=== PATIENT | male | born 1970 | race Two or more races ===

== ENCOUNTER 2020-04-01 15:13 | Emergency (ER) | payer OTHER, SELFPAY ==
--- NOTE | ~2020-04-01 | XR_ITS ---
EXAMINATION: XR FOREARM, hand and wrist, LEFT CLINICAL INFORMATION: Pain COMPARISON: None TECHNIQUE: AP and lateral views of the left forearm were obtained. 4 views of the left hand and wrist FINDINGS: Left hand and wrist: Bone alignment is normal. No acute fracture or dislocation is seen. There is a well-corticated density ossification adjacent to the dorsal PIP joint of the fourth finger questionable for old trauma. There is evidence of mild arthritis with small osteophytes joint space narrowing at the DIP joints, greatest at the second digit. Carpal bones are unremarkable. Soft tissues are unremarkable. Left forearm: Bone alignment is normal. No fracture or dislocation is seen. Joint spaces are normal. There may be a small radiopaque density in the soft tissues of the distal forearm adjacent to the palmar distal ulna measuring 2 mm. XR/XR hand wrist LT IMPRESSION: Left hand and wrist: No acute fracture or dislocation. Mild degenerative changes. Left forearm: Question small 1 to 2 mm radiopaque soft tissue foreign body adjacent to the distal ulna.
--- NOTE | ~2020-04-01 | XR_ITS ---
EXAMINATION: XR FOREARM, hand and wrist, LEFT CLINICAL INFORMATION: Pain COMPARISON: None TECHNIQUE: AP and lateral views of the left forearm were obtained. 4 views of the left hand and wrist FINDINGS: Left hand and wrist: Bone alignment is normal. No acute fracture or dislocation is seen. There is a well-corticated density ossification adjacent to the dorsal PIP joint of the fourth finger questionable for old trauma. There is evidence of mild arthritis with small osteophytes joint space narrowing at the DIP joints, greatest at the second digit. Carpal bones are unremarkable. Soft tissues are unremarkable. Left forearm: Bone alignment is normal. No fracture or dislocation is seen. Joint spaces are normal. There may be a small radiopaque density in the soft tissues of the distal forearm adjacent to the palmar distal ulna measuring 2 mm. XR/XR forearm LT 2V IMPRESSION: Left hand and wrist: No acute fracture or dislocation. Mild degenerative changes. Left forearm: Question small 1 to 2 mm radiopaque soft tissue foreign body adjacent to the distal ulna.
[2020-04-01 15:26] VITALS: BP 108/59; PULSE 74; RESP 16; TEMP 37; O2SAT 97; BMI 22.3
[2020-04-01] MEDS: HYDROcodone Bit/Acetam 5/325 TABLET 1 TAB PO (16:24)
--- NOTE | 2020-04-01 16:30 | ED_ITS ---
HPI - Extremity Injury (Upper) General Chief Complaint: Extremity Injury, Lower Stated Complaint: Arm pain/Work Injury Time Seen by Provider: 04/01/20 15:52 Source: patient Mode of arrival: ambulatory Limitations: no limitations History of Present Illness HPI narrative: 49-year-old male with no significant past medical history presenting to the ED with complaints of left forearm/wrist pain while lifting a 95 lb bag of cement at work a few days ago worse today with the pain. Reports he feels like ?I have water in it?. complaint: injury to: left, forearm and wrist Other injuries: none Place: work Severity: moderate Relieving factors: none Exacerbating factors: other (Movement) Context: other (Injury with cement bags) Associated symptoms: denies other symptoms Related Data Previous Rx's Medication Instructions Recorded cephalexin 500 mg PO BID 10 Days #20 cap 04/01/20 doxycycline monohydrate 100 mg PO BID 10 Days #20 cap 04/01/20 naproxen 500 mg PO BID PRN #10 tab 04/01/20 oxycodone-acetaminophen [Percocet] 1 tab PO Q6H PRN #10 tab 04/01/20 Allergies Allergy/AdvReac Type Severity Reaction Status Date / Time No Known Allergies Allergy Unverified 11/07/19 15:03 [No Known Allergies*] Review of Systems Review of Systems: Constitutional : No Fever, No Chills Eyes: No Eye Pain, No Swelling, No Redness, No Foreign Body, No Discharge, No Vision Changes Cardiovascular : No Chest Pain, No SOB, No Dyspnea on Exertion, No Orthopnea, No Edema, No Palpitations Musculoskeletal : + joint pain, No Myalgias, No Joint Swelling Skin : No Skin Lesions, No rash Neuro : No Weakness, No Numbness, No Paresthesias Heme/Lymph: No Lymphadenopathy Yes all other systems are reviewed and are negative [facility] Past Medical History Attestation statement: The following information was validated with the patient. Medical History No known health problems Social History Social History Advance Directives: No Advance Directives Information Provided: Yes Physical Exam Vital Signs: Vital Signs: Last Vital Signs Temp 98.6 F 04/01/20 15:26 Pulse 74 04/01/20 15:26 Resp 16 04/01/20 15:26 BP 108/59 L 04/01/20 15:26 Pulse Ox 97 04/01/20 15:26 Body Mass Index 22.3 vital signs have been reviewed as normal and appeared to be correct. Blood pressure normal. Heart rate normal. Respiration rate normal. Temperature normal. Oxygen saturation normal. Appearance: Alert. Oriented X3. No acute distress. Head: Normal external exam. Normocephalic. Atraumatic. Eyes: PERRLA. EOMI. Conjunctiva and sclera normal. Eyelids normal. ENT: Pharynx normal. Uvula midline. Moist mucous membranes. Neck: Normal inspection. Neck supple. FROM. No adenopathy. Thyroid Normal. No meningeal signs. No neck mass noted. CVS: Normal heart rate and rhythm. Heart sound normal. No murmurs noted. Pulses normal throughout. Respiratory: No respiratory distress. Painless inspiration. Breath sounds normal. No wheezes/rales/rhonchi noted. Chest nontender. No accessory muscle usage noted or decreased air movement noted. Back: Full range of motion noted. Skin: Skin warm and dry. Normal skin color. Normal skin turgor. No rashes/lesions/lacerations noted. Extremities: TTP of left forearm at the proximal aspect c mild erythema. No streaking/induration/fluctuance/abrasions/lacerations noted. Patient with full range of motion of elbow/wrist and hand. Patient mild tenderness to palpation to left wrist. Otherwise all other Extremities exhibit normal range of motion and nontender. Neuro: Oriented X 3. No motor deficit. No sensory deficit. Reflexes normal. 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 Reports that the bag was intact and did not break open and he denies any other injuries complaints or concerns. X-ray obtained of left hand and wrist and revealed chronic changes no acute processes noted. X-ray of left forearm revealed a foreign body at the distal aspect of the forearm were patient does not have any pain and does not have any signs of infection or open wounds/abrasions or foreign bodies therefore most likely this foreign body is old/chronic. Otherwise no other acute processes noted. Will DC home with an tibiotics for possible cellulitic infection and symptomatic treatment along with referral to Orthopedics and instructions return if any new or worsening symptoms. Patient understands agrees the plan. MDM - Extremity Injury (Upper) Medical Records Attestation: I reviewed the patient's medical records. Imaging Data Left wrist/hand/forearm x-ray: Attestation: I personally reviewed and interpreted this imaging study as follows: Radiologist's impression: INDINGS: Left hand and wrist: Bone alignment is normal. No acute fracture or dislocation is seen. There is a well-corticated density ossification adjacent to the dorsal PIP joint of the fourth finger questionable for old trauma. There is evidence of mild arthritis with small osteophytes joint space narrowing at the DIP joints, greatest at the second digit. Carpal bones are unremarkable. Soft tissues are unremarkable. Left forearm: Bone alignment is normal. No fracture or dislocation is seen. Joint spaces are normal. There may be a small radiopaque density in the soft tissues of the distal forearm adjacent to the palmar distal ulna measuring 2 mm. XR/XR hand wrist LT IMPRESSION: Left hand and wrist: No acute fracture or dislocation. Mild degenerative changes. Left forearm: Question small 1 to 2 mm radiopaque soft tissue foreign body adjacent to the distal ulna. Discharge Plan Discharge Clinical Impression: Foreign body forearm, Sprain of forearm, left, Cellulitis of forearm, left Patient Disposition: Home, Self-Care Instructions: Soft Tissue Foreign Body (ED), Sprain (ED) Prescriptions: New oxycodone-acetaminophen [Percocet] 5-325 mg tablet 1 tab PO Q6H PRN (Reason: pain) Qty: 10 RF: 0 doxycycline monohydrate 100 mg capsule 100 mg PO BID 10 Days Qty: 20 RF: 0 cephalexin 500 mg capsule 500 mg PO BID 10 Days Qty: 20 RF: 0 naproxen 500 mg tablet 500 mg PO BID PRN (Reason: pain) Qty: 10 RF: 0 Referrals: Minda Cui MD [Physician] - 2 days (Call tomorrow to make an appointment within the next week) Stand Alone Forms: Work/School Release Print Language: Anguillan
== END 2020-04-01 17:05 | disposition home or self-care (01) ==
PROVIDERS: Emergency Provider Emergency Medicine Emergency Medical Services
DX: M79.5 Residual foreign body in soft tissue (principal); S63.8X2A Sprain of other part of left wrist and hand, initial encounter; X50.0XXA Overexertion from strenuous movement or load, initial encounter; L03.114 Cellulitis of left upper limb; Y93.89 Activity, other specified; Y92.69 Other specified industrial and construction area as the place of occurrence of the external cause; Y99.0 Civilian activity done for income or pay
CPT/HCPCS: 73090; 73110; 73130; 99283

== ENCOUNTER 2025-02-10 10:10 | Inpatient (IN) | payer MEDICAID, SELFPAY ==
--- NOTE | ~2025-02-10 | XR_ITS ---
EXAMINATION: XR CHEST 2 VIEWS HISTORY: SOB. cough. Pneumonia? COMPARISON: There are no prior studies available for comparison. FINDINGS: PA and lateral views of the chest are submitted. The lungs are hyperinflated, consistent with COPD. There are multifocal airspace opacities throughout the lungs, likely representing pneumonia. There is no pleural effusion, pneumothorax, or pulmonary vascular congestion. The heart is normal in size. There is degenerative disc disease of the spine. XR/XR chest 2V IMPRESSION: COPD. Multifocal airspace opacities throughout the lungs, likely representing pneumonia. Follow-up is recommended. If there are outside prior examinations, comparison is recommended. Electronically signed by: Silvio Fonseca MD 02/10/2025 11:07 AM [facility]
--- NOTE | ~2025-02-10 | CT_ITS ---
EXAMINATION: CT ABDOMEN PELVIS WITHOUT IV CONTRAST HISTORY: abd pain, air on ct chest COMPARISON: Correlation is made with the upper abdominal images from a chest CTA performed earlier in the day. TECHNIQUE: CT scan of the abdomen and pelvis was performed without contrast using standard departmental protocol. Coronal and sagittal reformatted images were generated and reviewed. Oral contrast material was not administered at the request of the referring physician. This CT exam was performed with one or more of the following dose reduction techniques: automated exposure control, adjustment of the mA and/or kV according to patient size, use of iterative reconstruction technique. DLP: 261 mGy-cm FINDINGS: The examination is markedly limited due to a paucity of abdominal fat. LOWER CHEST: There are numerous tree-in-bud opacities at the lung bases consistent with small airways disease. Multifocal airspace opacities are seen, consistent with pneumonia.. There is no pleural effusion. CARDIOVASCULATURE: The heart is normal in size. There is no pericardial effusion. LIVER: The liver is normal in size and contour. GALLBLADDER / BILE DUCTS: The gallbladder is unremarkable. There is no intra or extrahepatic biliary ductal dilatation. SPLEEN: The spleen is normal in size. PANCREAS: The pancreas is poorly visualized. ADRENAL GLANDS: The adrenal glands are poorly visualized. KIDNEYS/RETROPERITONEUM: Excreted contrast is noted in the bilateral renal collecting systems from prior chest CTA. LYMPH NODES: Evaluation of the retroperitoneum is markedly limited due to lack of intra-abdominal fat. VASCULATURE: The abdominal vessels are not well visualized. MESENTERY/PERITONEUM: There is no free intraperitoneal gas. STOMACH: The stomach is poorly visualized. SMALL BOWEL: Small bowel loops are poorly visualized. COLON: There is stool in the colon. APPENDIX: The appendix is not visualized. URINARY BLADDER/PELVIC ORGANS: There is excreted contrast in the urinary bladder. BONES / SOFT TISSUES: The bones are intact. CT/CT abdomen pelvis wo IV con IMPRESSION: Markedly limited examination due to lack of intravenous and oral contrast material and a paucity of abdominal fat. There is no free intraperitoneal gas. Electronically signed by: Silvio Fonseca MD 02/10/2025 03:39 PM EST
--- NOTE | ~2025-02-10 | XR_ITS ---
EXAMINATION: XR CHEST 1 VIEW HISTORY: pneumonia COMPARISON: Comparison is made with the prior examination dated 02/10/2025. FINDINGS: A single AP portable view of the chest performed at 9:17 AM is submitted. The lungs remain hyperinflated, consistent with COPD. Again seen are multifocal airspace opacities throughout the lungs, compatible with pneumonia. There is no pleural effusion, pneumothorax, or pulmonary vascular congestion. The heart is normal in size. There is degenerative disc disease of the spine. XR/XR chest 1V IMPRESSION: COPD. Multifocal airspace opacities throughout the lungs without change, consistent with pneumonia. Electronically signed by: Silvio Fonseca MD 02/12/2025 09:29 AM [facility]
--- NOTE | ~2025-02-10 | CT_ITS ---
EXAMINATION: CT ANGIOGRAM CHEST CLINICAL INFORMATION: Dyspnea, 30 lb weight loss, abnormal chest XR COMPARISON: Chest x-ray performed 45 minutes earlier TECHNIQUE: Multiple axial images were obtained through the chest after the administration of 65 mL of Omnipaque 350 intravenous contrast. Extensive vascular post-processing including two-dimensional and three-dimensional reformatted images were created and reviewed on an independent workstation. This CT examination was performed using dose optimization techniques as appropriate, variously including the following: *Automated exposure control *Adjustment of mA and/or kV according to patient size (this includes techniques or standardized protocols for targeted exams where dose is matched to indication/reason for exam; i.e. extremities or head) *Use of iterative reconstruction technique FINDINGS: QUALITY OF STUDY/CONTRAST BOLUS: Adequate but degraded by beam hardening artifact related to dense contrast in the superior vena cava and right atrium. PULMONARY ARTERIES: No filling defects are identified in the pulmonary arteries. THORACIC AORTA: Mild multifocal atherosclerotic calcification are present. There is no aneurysm. There is no dissection. LUNGS AND PLEURA: There are patchy and confluent diffuse areas of groundglass and airspace opacities throughout the lungs There are innumerable small nodular densities, most pronounced in the lower lungs. There is no gross pulmonary vascular enlargement. There is paraseptal emphysema in the lung apexes. There is no pleural effusion. MEDIASTINUM: There is increased density in the mediastinal fat. There is a 9 mm short axis AP window lymph node. There is an 11 mm short axis subcarinal lymph node. There are subcentimeter bilateral hilar lymph nodes. CORONARY ARTERY CALCIFICATION: No definite calcifications, but moderately obscured due to motion artifacts. CHEST WALL/AXILLA: No axillary or internal mammary lymphadenopathy. UPPER ABDOMEN: There is essentially no intraperitoneal fat limiting evaluation. There is trace gas along the deep margin of the left lobe of the liver. The exact location is uncertain given the limited evaluation of the upper abdomen. BONES: Unremarkable CT/CT angio chest PE protocol IMPRESSION: No evidence of pulmonary embolus. Multifocal ground glass and airspace opacity is suspicious for pneumonia. There are innumerable small nodular densities in the lung bases that could also be related, though underlying malignancy is not ruled out, follow-up CT should be performed after complete resolution of patient's symptoms. There is trace gas visible along the deep surface of the left hepatic lobe. The precise location and origin of the gas is uncertain given the limited evaluation of the abdomen. The patient also has scant intraperitoneal fat which increases the difficulty of characterization of the abdomen. If there is evidence of abdominal or pelvic pathology, consider CT abdomen and pelvis with IV and oral contrast. Fleischner guidelines were followed. Electronically signed by: John Velasquez MD 02/10/2025 12:22 PM [facility]
[2025-02-10 10:26] VITALS: BP 102/67; PULSE 73; RESP 20; TEMP 36.7; O2SAT 91; BMI 14.2
--- NOTE | 2025-02-10 10:32 | ED_ITS ---
HPI - General Adult General Chief complaint: Upper Respiratory Symptoms Stated complaint: Winded Easily, Pain In Lungs Time Seen by Provider: 02/10/25 10:43 Source: patient Mode of arrival: ambulatory Limitations: no limitations History of Present Illness ED Provider: Dr. Carl Tse HPI narrative: 54-year-old male history heroin use disorder in remission on methadone x4 years who presents emergency department for evaluation of feeling ill for 1 week. The patient states that he has had an occasional cough which is productive of yellow sputum with no blood in his sputum, loss of appetite with weight loss, weakness, dyspnea on exertion and bilateral chest pain. Patient states that he was feeling weaker therefore he came to the emergency department for evaluation. He had a subjective fever but denied chills. He denied rhinorrhea, sore throat, nausea, vomiting, diarrhea, myalgias arthralgias. He denies using injection drugs, he states that when he was using heroin he was using a intranasally but he has not used in 4 years. Related Data Home Medications ?Medication ?Instructions ?Recorded ?Confirmed methadone 10 mg/mL oral concentrate 105 mg PO DAILY 02/11/25 Allergies Allergy/AdvReac Type Severity Reaction Status Date / Time No Known Allergies (No Known Allergy Unverified 02/10/25 10:27 Allergies*) Review of Systems 2 Review of Systems: Yes all other systems are reviewed and are negative [facility] Past Medical History [facility] Narrative: Social history: He smokes 2 cigarettes per day times 15 years. He denies alcohol use. He denies drug use. Medical History Polysubstance abuse Cachexia Opiate dependence Social History Social History Household Members: Family Housing: House Do you presently have visiting nurse or other home services: No Patient Tobacco Use Status: Never used Tobacco Tobacco use type: Cigarette Cigarettes Per Day: 2 Second Hand Smoke Exposure: No service: No Physical Exam ED Vital Signs: Vital Signs - 24 hr 02/10/25 10:26 02/10/25 10:47 Temperature 98.0 F 98.4 F Pulse Rate 73 83 Respiratory Rate 20 17 Blood Pressure 102/67 113/74 Pulse Oximetry 91 L 100 Oxygen Delivery Method Room Air Room Air BMI result Body Mass Index 14.2 Vital signs revealed an O2 saturation of 91% on room air when he 1st got to the emergency department, repeat O2 saturation was 100% on room air. Vital signs otherwise unremarkable Exam: General: Awake, alert in no distress, patient's weight is 44.8 kg, low BMI 14.2 kilograms/meters squared Head: Normocephalic, atraumatic EENT: PERRL, sclera and conjunctiva are normal, mouth with no erythema or exudates Neck: Supple, no adenopathy Lung: breath sounds symmetric, no wheezing, no rales and no rhonchi Chest: symmetric movement, nontender Heart: regular rate and rhythm, normal S1, S2 no murmurs or rubs Abdomen: soft, non-tender, nondistended, normal bowel sounds Back: no vertebral tenderness, no CVAT Extremities: no deformities, moves all extremities symmetrically, no edema Neuro: Awake, alert, oriented, normal speech, cranial nerves 2-12 intact, moves all extremities symmetrically Psych: Pleasant, cooperative Course Course Course Narrative: RME: 54 yold male on methaonde presents to the ED For URI symptoms. Patient right lung pain with SOB with coughing and wieght loss. patient appears cachectic, but denies any medical history. labs and xray ordered. 02 sat 91, not labored. will alert charge nurse Medications Administered Generic Name Dose Route Start Last Admin Trade Name Freq PRN Reason Stop Dose Admin Azithromycin 500 mg 02/11/25 15:00 02/12/25 15:35 Azithromycin 500 Mg Tablet PO 500 mg Q24H HECTOR Administration Enoxaparin Sodium 40 mg 02/11/25 09:00 02/12/25 08:34 Enoxaparin Sodium 40 Mg/0.4 Ml Syringe SUBCUT Not Given Q24H HECTOR Ceftriaxone Sodium 1 gm/ 50 mls @ 100 mls/hr 02/11/25 12:00 02/12/25 12:52 Sodium Chloride IV Infused Q24H HECTOR Infusion Methadone HCl 105 mg 02/11/25 11:00 02/12/25 09:07 Methadone Hcl 20 Mg/2 Ml Oral.Conc PO 105 mg DAILY HECTOR Administration Sodium Chloride 3 ml 02/10/25 16:00 02/12/25 15:38 0.9 % Sodium Chloride Flush 3 Ml Syringe IVFLUSH Not Given QSHIFT HECTOR Discontinued Medications Generic Name Dose Route Start Last Admin Trade Name Amanda PRN Reason Stop Dose Admin Ceftriaxone Sodium 2 gm/ 50 mls @ 100 mls/hr 02/10/25 11:15 02/10/25 12:46 Sodium Chloride IV 02/10/25 11:44 Infused ONCE ONE Infusion Azithromycin 500 mg/ Sodium 250 mls @ 125 mls/hr 02/10/25 11:15 02/10/25 14:38 Chloride IV 02/10/25 13:14 Infused ONCE ONE Infusion Clindamycin Phosphate 600 mg in 50 mls @ 100 mls/hr 02/10/25 13:54 02/10/25 15:35 Cleocin IV 02/10/25 14:23 Infused ONCE ONE Infusion Iohexol 100 ml 02/10/25 11:39 02/10/25 11:39 Iohexol 350 Mg/Ml 100 Ml Infus..Btl IV 02/10/25 11:40 65 ml ONCE ONE Administration Ketorolac Tromethamine 30 mg 02/10/25 10:56 02/10/25 11:13 Ketorolac Tromethamine 30 Mg/Ml Vial IM 02/10/25 10:57 30 mg ONCE ONE Administration Medical Decision Making Medical Decision Making MDM Narrative: 54-year-old male history heroin use disorder in remission on methadone x4 years who presents emergency department for evaluation of feeling ill for 1 week. Patient is complaining of loss of appetite, significant weight also over 1 week, occasional cough productive of yellow sputum, loss of appetite, weakness, bilateral ribs/chest pain, dyspnea on exertion. Vital signs were normal. Physical examination was unremarkable except for very low BMI of 14.2 kilograms/meters squared. Differential diagnosis: ?Includes but is not limited to viral syndrome, COVID- 19, RSV, influenza, pneumonia, malignancy, bronchitis, anemia, electrolyte abnormalities Course: 11:24 My interpretation patient's laboratory evaluation is as follows: Normocytic anemia with an H&H of 11.5 and 33.6 with a an MCV of 89.6. Low sodium 134. Elevated glucose 126. LFTs were normal. COVID-19, influenza, RSV and rapid strep were negative. Chest x-ray is consistent with COPD like changes, he also has bilateral infiltrates. Given his weight loss and increased dyspnea on exertion I am concerned that the patient may have a malignancy in his opposed to an infectious process and I did discuss this with the patient. I did order a CT pulmonary angiogram PE protocol to evaluate for PE, malignancy versus infectious process. I ordered blood cultures x2, lactic acid, IV insert. I also treat the patient for possible community-acquired pneumonia with ceftriaxone 1 g IV and azithromycin 500 mg IV. 13:[address] normal. CT pulmonary angiogram PE protocol revealed no pulmonary embolism, patient does have multifocal ground-glass opacities suspicious for pneumonia as well as multiple nodules but no large tumor noted by the radiologist. The radiologist also noted gas visible longer deep structures of the left hepatic lobe however I do not know the clinical significance of this finding, but I did order clindamycin 600 mg IV to increase the patient's anaerobic coverage. 14:32 I did discuss admission over tiger text with the covering hospitalist, nurse practitioner Socorro Keenan and the patient will be admitted for further treatment. Differential Diagnosis Differential Diagnoses: The differential diagnosis associated with the presentation includes See above Admission/Observation Consideration of admission/observation: Escalation of care including admission/observation considered (Yes) Consult Healthcare Provider Management of the patient was discussed with: Hospitalist Lab Data [facility] Lab Attestation statement: I reviewed the patient's lab results. 02/11/25 05:27 02/11/25 05:27 Labs: Lab Results 02/10/25 02/10/25 02/10/25 Range/Units 10:42 11:48 11:49 WBC 9.1 (4.8-10.8) X10*3/uL RBC 3.75 L (4.60-5.80) X10*6/uL Hgb 11.5 L (14.0-18.0) g/dl Hct 33.6 L (42.0-52.0) % MCV 89.6 (80.0-98.0) fL MCH 30.7 (27.0-33.0) pg MCHC 34.2 (31.0-36.0) g/dl RDW 14.6 (11.0-16.0) % Plt Count 227 (160-400) X10*3/uL MPV 10.0 (9.4-12.4) fL Immature Gran % (Auto) Cancelled Neut % (Auto) Cancelled Lymph % (Auto) Cancelled [place] % (Auto) Cancelled Eos % (Auto) Cancelled Baso % (Auto) Cancelled Lymph # (Auto) Cancelled [place] # (Auto) Cancelled Eos # (Auto) Cancelled Baso # (Auto) Cancelled Abs Immat Gran (auto) Cancelled Absolute Neuts (auto) Cancelled Absolute Nucleated RBC 0.000 (0.0-0.012) X10*3/uL Nucleated RBC % (auto) 0.0 (0.0-0.2) /100WBC Neutrophils % (Manual) 80 H (45-73) % Band Neutrophils % 3 (3-5) % Lymphocytes % (Manual) 15 L (20-40) % Monocytes % (Manual) 2 (2-11) % Abs Neuts (Manual) 7.6 (2.0-8.3) X10*3/uL Lymphocytes # (Manual) 1.4 (1.2-4.9) X10*3/uL Monocytes # (Manual) 0.2 (0.1-1.2) X10*3/uL Toxic Granulation PRESENT Dohle Bodies PRESENT Platelet Estimate NORMAL (NORMAL) Large Platelets PRESENT Plt Morphology Comment NOTED RBC Morphology NOTED [place] Cells 1+ (0-2) /OIF Acanthocytes (Spur) 2+ (3-5) /OIF APTT 28.8 (26.7-34.1) SEC Sodium 134 L (135-145) mmol/L Potassium 4.3 (3.3-5.1) mmol/L Chloride 99 (96-108) mmol/L Carbon Dioxide 25 (22-29) mmol/L Anion Gap 14 (12-20) BUN 15 (9-16) mg/dL Creatinine 0.56 (0.5-1.4) mg/dL Estim Creat Clear Calc 96.6 Estimated GFR > 60 Random Glucose 128 H (60-115) mg/dL Lactic Acid 0.8 (0.5-2.0) mmol/L Calcium 8.8 (8.4-10.2) mg/dL Magnesium 2.1 (1.6-2.6) mg/dL Total Bilirubin 0.6 (0.0-1.0) mg/dL AST 33 (5-37) U/L ALT 20 (0-40) U/L Alkaline Phosphatase 77 (39-117) U/L Total Creatine Kinase 59 (38-174) U/L Total Protein 6.8 (6.5-8.0) g/dL Albumin 3.3 L (3.5-5.0) g/dL Influenza Type A (PCR) NEGATIVE (Negative) Influenza Type B (PCR) NEGATIVE (Negative) RSV RNA Qual (PCR) NEGATIVE (Negative) SARS-CoV-2 RNA (RT-PCR) NEGATIVE (Negative) S. pyogenes GrpA CED Negative (Negative) Independent Interpretation I performed an independent interpretation of an: Plain X-Ray Interpretation: My independent interpretation patient's one-view chest x-ray is as follows: COPD changes, multiple bilateral interstitial infiltrates Radiology Impression Radiologist Impression: XR chest 2V IMPRESSION: COPD. Multifocal airspace opacities throughout the lungs, likely representing pneumonia. Follow-up is recommended. If there are outside prior examinations, comparison is recommended. Electronically signed by: Silvio Fonseca MD 02/10/2025 11:[address] angio chest PE protocol IMPRESSION: No evidence of pulmonary embolus. Multifocal ground glass and airspace opacity is suspicious for pneumonia. There are innumerable small nodular densities in the lung bases that could also be related, though underlying malignancy is not ruled out, follow-up CT should be performed after complete resolution of patient's symptoms. There is trace gas visible along the deep surface of the left hepatic lobe. The precise location and origin of the gas is uncertain given the limited evaluation of the abdomen. The patient also has scant intraperitoneal fat which increases the difficulty of characterization of the abdomen. If there is evidence of abdominal or pelvic pathology, consider CT abdomen and pelvis with IV and oral contrast. Fleischner guidelines were followed. Electronically signed by: John Velasquez MD 02/10/2025 12:22 PM Critical Care Time Critical Care Time Critical Care Time: Yes Total Critical Care Time: 45 Attestation: Critical Care: The patient was critically ill with a high probability of imminent or life threatening deterioration. I spent greater than 30 minutes of discontinuous time evaluating the patient,delivering critical care at the bedside, discussing and evaluating pertinent data with consultants. Critical care time does not include time spent performing separately billable procedures or teaching. Total time spent performing critical care was 45 minutes. Discharge Plan Discharge Clinical Impression: Abnormal weight loss Pneumonia Qualifiers: Pneumonia type: due to unspecified organism Laterality: unspecified laterality Lung location: unspecified part of lung Qualified Code(s): J18.9 - Pneumonia, unspecified organism Patient Disposition: Admitted As Inpatient Interventions: Admission Worksheet (ED) Last Done: 02/10/25 16:33 Discharge Date/Time: 02/10/25 17:33
[2025-02-10 10:47] VITALS: BP 113/74; PULSE 83; RESP 17; TEMP 36.9; O2SAT 100
[2025-02-10 10:59] LABS: Hematocrit 33.6 % (42.0-52.0); Hemoglobin 11.5 g/dl (14.0-18.0); Mean Corpuscular HGB Conc 34.2 g/dl (31.0-36.0); Mean Corpuscular Hemoglobin 30.7 pg (27.0-33.0); Mean Corpuscular Volume 89.6 fL (80.0-98.0); NRBC Abs Auto 0.000 X10*3/uL (0.0-0.012); NRBC Pct Auto 0.0 /100WBC (0.0-0.2); Platelet Count 227 X10*3/uL (160-400); Red Blood Count 3.75 X10*6/uL (4.60-5.80); White Blood Count 9.1 X10*3/uL (4.8-10.8)
[2025-02-10 11:00] LABS: IDNOW Serial# 08D9AD1C; Strep A Nucleic Acid Negative (Negative)
[2025-02-10 11:05] LABS: Alanine Aminotransferase 20 U/L (0-40); Albumin Level 3.3 g/dL (3.5-5.0); Alkaline Phosphatase 77 U/L (39-117); Anion Gap 14 (12-20); Aspartate Amino Transferase 33 U/L (5-37); Blood Urea Nitrogen 15 mg/dL (9-16); Calcium 8.8 mg/dL (8.4-10.2); Carbon Dioxide 25 mmol/L (22-29); Chloride 99 mmol/L (96-108); Creatinine Clr Calc Pharmacy 96.6; Estimated Glomerular Filt Rate > 60; Magnesium 2.1 mg/dL (1.6-2.6); Potassium 4.3 mmol/L (3.3-5.1); Sodium 134 mmol/L (135-145); Total Protein 6.8 g/dL (6.5-8.0)
[2025-02-10 11:37] LABS: Resp Syncy Virus RNA Qual PCR NEGATIVE (Negative); SARS COV2 PCR INHOUSE NEGATIVE (Negative)
[2025-02-10] MEDS: iohexoL 350 MG/ML 100 ML INFUS..BTL IV (11:39)
[2025-02-10 11:42] LABS: Band Neutrophils Percent 3 % (3-5); Lymphocytes Absolute Manual 1.4 X10*3/uL (1.2-4.9); Lymphocytes Percent Manual 15 % (20-40); Monocytes Absolute Manual 0.2 X10*3/uL (0.1-1.2); Monocytes Percent Manual 2 % (2-11); Neutrophils Absolute Manual 7.6 X10*3/uL (2.0-8.3); Neutrophils Percent Manual 80 % (45-73)
[2025-02-10 11:45] LABS: Acanthocytes 2+ (3-5) /OIF; Burr Cells 1+ (0-2) /OIF; Dohle Bodies PRESENT; Large Platelet PRESENT; RBC Morphology NOTED
[2025-02-10 11:46] LABS: Toxic Granulation PRESENT
[2025-02-10 12:04] LABS: Partial Thromboplastin Time 28.8 SEC (26.7-34.1)
--- OUTSIDE RECORDS SUMMARY | 2025-02-10 13:52 | XMS_ITS | Clinical Summary ---
Author Organization 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 Name Role Phone Unavailable Primary Care Provider Unavailabl e Medications melatonin tabletIndicatio ns:Primary insomnia TAKE 1 TABLET BY MOUTH AT BEDTIME NEEDED FOR SLEEP 90 tablet 09/08/2023 Active Social History Tobacco Use Types Packs/Day Years Used Date Smoking Tobacco: Never Assessed Sex and Gender Information Value Date Recorded Sex Assigned at Male 12/20/2021 10:15 AM EDT Legal Sex Male 10:15 AM EDT Gender Identity Male 12/20/2021 10:15 AM EDT Sexual Orientation Don't know 12/20/2021 10 :15 AM EDT Last Filed Vital Signs Vital Sign Reading Time Taken Comments Blood Pressure 118/60 06/17/2020 12:04 AM EDT Pulse 68 06/17/2020 12:04 AM EDT Temperature - - Respiratory Rate - - Oxygen Saturation - - Inhaled Oxygen Concentration - - Weight 56.5 kg (124 lb 9.6 oz) 06/17/2020 12:04 AM EDT Height 178 cm (5' 10.08 ) 06/17/2020 12:04 AM ED T Body Mass Index 17.84 06/17/2020 12:04 AM EDT Plan of Treatment Health Maintenance Due Date Last Done Comments CT Colonography 1971 Colonoscopy 1971 Colorectal Cancer Screening 1971 Depression Screening 1971 FIT DNA/Cologuard 1971 FIT 1971 FOBT 1971 HIV Screening 1971 Lipid Panel 1971 Sigmoidoscopy 1971 Disability Screening 1971 Alcohol/Substance Use Screening 1983 Tobacco Screening 1983 Hepatitis C Screening 04/25/1989 Hepatitis B Vaccines (1 of 3 - 19+ 3-dose series) 04/25/1990 Pneumococcal Vaccine: 50+ Years (1 of 1 - PCV) 04/25/2021 Zoster Vaccines (1 of 2) 04/25/2021 COVID-19 Vaccine (3 - 2024-2 6 season) 2024 08/06/2020, 07/03/2020 Influenza Vaccine (#1) 2024 DTaP/Tdap/Td Vaccines (3 - T d or Tdap) 05/30/2027 05/29/2017, 05/29/2017 RSV Patients and Patients Aged 60 years or older (1 - 1-dose 75+ series) 04/25/2046 HIB Vaccines Aged Out No longer eligi ble based on patient's age to complete this topic HPV Vaccines Aged Out No longer eligi ble based on patient's age to complete this topic Hepatitis A Vaccines Aged Out No long er eligible based on patient's age to complete this topic IPV Vaccines Aged Out No longer eligi ble based on patient's age to complete this topic Meningococcal B Vaccine Aged Out No l onger eligible based on patient's age to complete this topic Meningococcal Vaccine Aged Out No krys magen eligible based on patient's age to complete this topic RSV under 20 months Aged Out No longe r eligible based on patient's age to complete this topic Rotavirus Vaccines Aged Out No longer eligible based on patient's age to complete this topic
--- OUTSIDE RECORDS SUMMARY | 2025-02-10 13:52 | XMS_ITS | Encounter Summary ---
Author Organization [employer] [facility] Address [address] [place] [address] Care Team Providers Care Ironer Sock Name Role Phone Minna Wilder MD Primary Care Pro vider Reason for Visit * Reason Comments Med Refill Encounter Details Date Type Department Care Team ([facility] st Contact Info) Description 12/12/2023 Refill [facility] MEDICINE [address] [place] [address] Minna Wilder MD [address] [place] [address] Primary insomnia Social History Tobacco Use Types Packs/Day Years Used Date Smoking Tobacco: Never Assessed Sex and Gender Information Value Date Recorded Sex Assigned at Male 12/20/2021 10:15 AM EDT Legal Sex Male 10:15 AM EDT Gender Identity Male 12/20/2021 10:15 AM EDT Sexual Orientation Don't know 12/20/2021 10 :15 AM EDT documented as of this encounter Plan of Treatment Not on file documented as of this encounter Visit Diagnoses Diagnosis Primary insomnia Persistent disorder of initiating or maintaining sleep documented in this encounter Care Teams Ironer Sock Relationship Specialty Start Date End Date Minna Wilder MD [address] [place], [place] [phone] PCP - General Internal Medicine 08/30/22 11/05/24 documented as of this encounter
--- OUTSIDE RECORDS SUMMARY | 2025-02-10 13:52 | XMS_ITS | Encounter Summary ---
Author Organization [employer] [facility] Address [address] [place] [address] 7[address] [place] [address] Care Team Providers Care Retanned Leather Roller Name Role Phone Deidre Ramirez Primary Care Provider Minna Black MD Primary Care Pro vider Encounter Details Date Type Department Care Team (Late st Contact Info) Description 03/15/2022 Orders Only [facility] MEDICINE [address] [place] [address] Mary Mcclelland LPN Social History Tobacco Use Types Packs/Day Years [...] documented as of this encounter Visit Diagnoses Not on filedocumented in this encounter Care Teams Retanned Leather Roller Relationship Specialty Start Date End Date Deidre Ramirez FNP PCP - General Family Medicine 08/16/21 08/29/22 Minna Wilder MD [address] [place] [address] PCP - General Internal Medicine 08/30/22 11/05/24 documented as of this encounter
--- NOTE | 2025-02-10 14:37 | PM.IMHP ---
History of Present Illness Date of Service: 02/10/25 Chief Complaint: feeling sick 54M PMH opiate dependence on methadone, denies ivda, presented with 1 week of feeling sick . Patient is a vague historian, states on week prior to presentation he started to have fever, fatigue, loss of appetite, shortness breath, yellowish sputum. Reports 30 lb weight loss over that week, but did not measure. denies sick contacts, chest pain, n/v/d, abdominal pain. in ED, CT chest with bilateral opacities most consistent with multifocal pneumonia though malignancy not ruled out, report of air under left diaphragm. Review of Systems Review of Systems: Yes all other systems are reviewed and are negative [facility] Medical History (Updated 02/10/25 @ 14:41 by Tanner Olivares MD) Opiate dependence Social History Advance Directives: No Advance Directives Information Provided: Yes Meds Allergies Allergy/AdvReac Type Severity Reaction Status Date / Time No Known Allergies (No Known Allergy Unverified 02/10/25 10:27 Allergies*) Active Medications: Current Medications Acetaminophen (Acetaminophen 325 Mg Tablet) 650 mg PO Q6H PRN PRN Reason: Pain, Mild 1-3,fever,headache Azithromycin (Azithromycin 500 Mg Tablet) 500 mg PO Q24H HECTOR Calcium Carbonate (Calcium Carbonate 750 Mg Tab.Chew) 750 mg PO Q4H PRN PRN Reason: Heartburn Enoxaparin Sodium (Enoxaparin Sodium 40 Mg/0.4 Ml Syringe) 40 mg SUBCUT Q24H HECTOR Ceftriaxone Sodium 1 gm/ (Sodium Chloride) 50 mls @ 100 mls/hr IV Q24H HECTOR Magnesium Hydroxide (Milk Of Magnesia 30 Ml Oral.Susp) 30 ml PO DAILY PRN PRN Reason: Constipation Melatonin (Melatonin 3 Mg Tablet) 6 mg PO BEDTIME PRN PRN Reason: Insomnia Sodium Chloride (0.9 % Sodium Chloride Flush 3 Ml Syringe) 3 ml IVFLUSH QSHIFT HECTOR Physical Exam Vital Signs and Narrative: Vital Signs: Last Vital Signs Temp 98.4 F 02/10/25 10:47 Pulse 83 02/10/25 10:47 Resp 17 02/10/25 10:47 BP 113/74 02/10/25 10:47 Pulse Ox 100 02/10/25 10:47 O2 Del Method Room Air 02/10/25 10:47 BMI result Body Mass Index 14.2 Alert oriented x3 no acute distress, cachectic and ill appearing, lungs diminished, abdomen soft and non tender Results Labs 02/10/25 10:42 02/10/25 10:42 Labs: Laboratory Results - last 24 hr 02/10/25 02/10/25 02/10/25 10:42 11:48 11:49 MCV 89.6 MCH 30.7 MCHC 34.2 RDW 14.6 Plt Count 227 MPV 10.0 Immature Gran % (Auto) Cancelled Neut % (Auto) Cancelled Lymph % (Auto) Cancelled [place] % (Auto) Cancelled Eos % (Auto) Cancelled Baso % (Auto) Cancelled Lymph # (Auto) Cancelled [place] # (Auto) Cancelled Eos # (Auto) Cancelled Baso # (Auto) Cancelled Abs Immat Gran (auto) Cancelled Absolute Neuts (auto) Cancelled Absolute Nucleated RBC 0.000 Nucleated RBC % (auto) 0.0 Neutrophils % (Manual) 80 H Band Neutrophils % 3 Lymphocytes % (Manual) 15 L Monocytes % (Manual) 2 Abs Neuts (Manual) 7.6 Lymphocytes # (Manual) 1.4 Monocytes # (Manual) 0.2 Toxic Granulation PRESENT Dohle Bodies PRESENT Platelet Estimate NORMAL Large Platelets PRESENT Plt Morphology Comment NOTED RBC Morphology NOTED [place] Cells 1+ (0-2) Acanthocytes (Spur) 2+ (3-5) APTT 28.8 Anion Gap 14 Estim Creat Clear Calc 96.6 Estimated GFR > 60 Random Glucose 128 H Lactic Acid 0.8 Calcium 8.8 Magnesium 2.1 Total Bilirubin 0.6 AST 33 ALT 20 Alkaline Phosphatase 77 Total Creatine Kinase 59 Total Protein 6.8 Albumin 3.3 L Influenza Type A (PCR) NEGATIVE Influenza Type B (PCR) NEGATIVE RSV RNA Qual (PCR) NEGATIVE SARS-CoV-2 RNA (RT-PCR) NEGATIVE S. pyogenes GrpA CED Negative Imaging Radiologist's Impressions: Impressions Chest X-Ray 02/10/25 10:57 IMPRESSION: COPD. Multifocal airspace opacities throughout the lungs, likely representing pneumonia. Follow-up is recommended. If there are outside prior examinations, comparison is recommended. Electronically signed by: Silvio Fonseca MD 02/10/2025 11:07 AM [facility] Chest CTA 02/10/25 11:35 IMPRESSION: No evidence of pulmonary embolus. Multifocal ground glass and airspace opacity is suspicious for pneumonia. There are innumerable small nodular densities in the lung bases that could also be related, though underlying malignancy is not ruled out, follow-up CT should be performed after complete resolution of patient's symptoms. There is trace gas visible along the deep surface of the left hepatic lobe. The precise location and origin of the gas is uncertain given the limited evaluation of the abdomen. The patient also has scant intraperitoneal fat which increases the difficulty of characterization of the abdomen. If there is evidence of abdominal or pelvic pathology, consider CT abdomen and pelvis with IV and oral contrast. Fleischner guidelines were followed. Electronically signed by: John Velasquez MD 02/10/2025 12:22 PM [facility] Assessment and Plan (1) Pneumonia: Status: Acute Plan 54M PMH opiate dependence on methadone, denies ivda, presented with 1 week of feeling sick Multifocal pneumonia Ceftriaxone, azithromycin, follow up respiratory viral panel, urine Legionella, urine strep, blood cultures Check HIV moderate protein calorie malnutrition with significant weight loss po intake encouraged check ct abd opiate dependence methadone dvt prophylaxis - lovenox full code given significant weight loss related to current illness, will require atleast 2 midnights inpatient for iv abx and ongoing work up of etiology to ensure proper treatment and monitor respondse. Quality Stroke Does the patient have a stroke diagnosis?: No VTE Prior VTE?: No VTE Risk Level:: Medical - moderate - high VTE Device Contraindication: Treatment Not Indicated VTE Drug Contraindication: N/A - Med Ordered
[2025-02-10 14:41] VITALS: BP 113/75; PULSE 59; RESP 16; TEMP 36.5; O2SAT 91
--- NOTE | 2025-02-10 14:56 | PHA.MEDREC ---
Addendum entered by Jake Casper RPh 02/10/25 15:00: Reviewed by [facility] Original Note: Pharmacy Consult ? Medication Reconciliation Pharmacy has completed the medication reconciliation. Spoke with pt and he confirmed he is only taking Methadone 105mg once daily and confirmed he last took it yesterday before coming into the ED; pt confirmed he has Methadone bottles locked up in his car for the week.
[2025-02-10] MEDS: 0.9 % Sodium Chloride Flush 3 ML SYRINGE IVFLUSH ×2 (15:36→21:22)
[2025-02-10 16:17] LABS: Cannabinoid Screen Urine POSITIVE (Not Detect)
[2025-02-10 17:39] VITALS: BMI 14.7
[2025-02-10 17:43] VITALS: BP 110/76; PULSE 65; RESP 18; TEMP 36.9; O2SAT 92
[2025-02-10 19:02] VITALS: BP 118/75; PULSE 61; RESP 18; TEMP 36.7; O2SAT 93
[2025-02-11 04:00] VITALS: BP 135/83; PULSE 71; RESP 18; TEMP 37.1; O2SAT 92
[2025-02-11 06:18] LABS: Hematocrit 32.3 % (42.0-52.0); Hemoglobin 10.9 g/dl (14.0-18.0); Mean Corpuscular HGB Conc 33.7 g/dl (31.0-36.0); Mean Corpuscular Hemoglobin 30.2 pg (27.0-33.0); Mean Corpuscular Volume 89.5 fL (80.0-98.0); NRBC Abs Auto 0.000 X10*3/uL (0.0-0.012); NRBC Pct Auto 0.0 /100WBC (0.0-0.2); Platelet Count 279 X10*3/uL (160-400); Red Blood Count 3.61 X10*6/uL (4.60-5.80); White Blood Count 10.4 X10*3/uL (4.8-10.8)
[2025-02-11 06:32] LABS: Anion Gap 12 (12-20); Blood Urea Nitrogen 16 mg/dL (9-16); Calcium 8.3 mg/dL (8.4-10.2); Carbon Dioxide 27 mmol/L (22-29); Chloride 100 mmol/L (96-108); Creatinine Clr Calc Pharmacy 112.3; Estimated Glomerular Filt Rate > 60; Potassium 4.4 mmol/L (3.3-5.1); Sodium 135 mmol/L (135-145)
[2025-02-11 06:46] VITALS: BP 135/81; PULSE 65; RESP 16; TEMP 37; O2SAT 90
[2025-02-11 06:55] LABS: HBS Num1 0.00 mIU/mL (0-7.99); HBc Num1 0.41 S/CO (0.00-0.79); HBsAGNum1 0.47 S/CO (0.00-0.99); HIV Num 1 0.08 S/CO (0.00-0.99); Hepatitis B Surface Antigen Negative (Negative); ~HepC Num1 0.24 S/CO (0.00-0.79); ~Hepatitis B Surface Antibody NONREACTIVE (Nonreactive); ~Hepatitis C Antibody Nonreactive (Nonreactive)
[2025-02-11] MEDS: 0.9 % Sodium Chloride Flush 3 ML SYRINGE IVFLUSH (08:37)
--- NOTE | 2025-02-11 09:09 | HE.PHANOTE ---
Methadone Methadone verification form received . Christal gets 105 mg daily at [facility] ([phone]). Patients last dose was 02/10/25 @0721 and was given 3 take home doses.
--- NOTE | 2025-02-11 09:53 | P.PNIM_ITS ---
Subjective Subjective Date of Service: 02/11/25 Interval History: a bit better Physical Exam 2 Exam: Exam: Alert oriented x3 no acute distress, cachectic and ill appearing, lungs diminished, abdomen soft and non tender Vital Signs: Vital Signs: Last Vital Signs Temp 98.6 F 02/11/25 06:46 Pulse 65 02/11/25 06:46 Resp 16 02/11/25 06:46 BP 135/81 02/11/25 06:46 Pulse Ox 90 L 02/11/25 06:46 O2 Del Method Room Air 02/11/25 06:46 BMI result Body Mass Index 14.7 Objective Data Active Medications Acetaminophen (Acetaminophen 325 Mg Tablet) 650 mg PO Q6H PRN PRN Reason: Pain, Mild 1-3,fever,headache Azithromycin (Azithromycin 500 Mg Tablet) 500 mg PO Q24H HECTOR Calcium Carbonate (Calcium Carbonate 750 Mg Tab.Chew) 750 mg PO Q4H PRN PRN Reason: Heartburn Enoxaparin Sodium (Enoxaparin Sodium 40 Mg/0.4 Ml Syringe) 40 mg SUBCUT Q24H [facility] Last Admin: 02/11/25 08:37 Dose: Not Given Documented By: ROZINA Non-Admin Reason: Patient Refused Ceftriaxone Sodium 1 gm/ (Sodium Chloride) 50 mls @ 100 mls/hr IV Q24H [facility] Magnesium Hydroxide (Milk Of Magnesia 30 Ml Oral.Susp) 30 ml PO DAILY PRN PRN Reason: Constipation Melatonin (Melatonin 3 Mg Tablet) 6 mg PO BEDTIME PRN PRN Reason: Insomnia Sodium Chloride (0.9 % Sodium Chloride Flush 3 Ml Syringe) 3 ml IVFLUSH QSHIFT [facility] Last Admin: 02/11/25 08:37 Dose: 3 ml Documented By: ROZINA Labs 02/11/25 05:27 02/11/25 05:27 Labs: Laboratory Results - last 24 hr 02/10/25 02/10/25 02/10/25 10:42 11:48 11:49 MCV 89.6 MCH 30.7 MCHC 34.2 RDW 14.6 Plt Count 227 MPV 10.0 Immature Gran % (Auto) Cancelled Neut % (Auto) Cancelled Lymph % (Auto) Cancelled [place] % (Auto) Cancelled Eos % (Auto) Cancelled Baso % (Auto) Cancelled Lymph # (Auto) Cancelled [place] # (Auto) Cancelled Eos # (Auto) Cancelled Baso # (Auto) Cancelled Abs Immat Gran (auto) Cancelled Absolute Neuts (auto) Cancelled Absolute Nucleated RBC 0.000 Nucleated RBC % (auto) 0.0 Neutrophils % (Manual) 80 H Band Neutrophils % 3 Lymphocytes % (Manual) 15 L Monocytes % (Manual) 2 Abs Neuts (Manual) 7.6 Lymphocytes # (Manual) 1.4 Monocytes # (Manual) 0.2 Toxic Granulation PRESENT Dohle Bodies PRESENT Platelet Estimate NORMAL Large Platelets PRESENT Plt Morphology Comment NOTED RBC Morphology NOTED [place] Cells 1+ (0-2) Acanthocytes (Spur) 2+ (3-5) APTT 28.8 Anion Gap 14 Estim Creat Clear Calc 96.6 Estimated GFR > 60 Random Glucose 128 H Lactic Acid 0.8 Calcium 8.8 Magnesium 2.1 Total Bilirubin 0.6 AST 33 ALT 20 Alkaline Phosphatase 77 Total Creatine Kinase 59 Total Protein 6.8 Albumin 3.3 L Urine Opiates Screen Ur Buprenorphine Scrn Ur Oxycodone Screen Urine Methadone Screen Urine Fentanyl Screen Ur Barbiturates Screen Ur Phencyclidine Scrn Ur Amphetamines Screen U Benzodiazepines Scrn Urine Cocaine Screen U Marijuana (THC) Screen Hep Bs Antigen Hep Bs Antibody Hep B Core Total Ab Hepatitis C Ab (EIA) HIV 1&2 Ab/P24 Ag 4thGn Influenza Type A (PCR) NEGATIVE Influenza Type B (PCR) NEGATIVE RSV RNA Qual (PCR) NEGATIVE SARS-CoV-2 RNA (RT-PCR) NEGATIVE S. pyogenes GrpA CED Negative 02/10/25 02/11/25 15:53 05:27 MCV 89.5 MCH 30.2 MCHC 33.7 RDW 15.0 Plt Count 279 MPV 10.8 Immature Gran % (Auto) Neut % (Auto) Lymph % (Auto) [place] % (Auto) Eos % (Auto) Baso % (Auto) Lymph # (Auto) [place] # (Auto) Eos # (Auto) Baso # (Auto) Abs Immat Gran (auto) Absolute Neuts (auto) Absolute Nucleated RBC 0.000 Nucleated RBC % (auto) 0.0 Neutrophils % (Manual) Band Neutrophils % Lymphocytes % (Manual) Monocytes % (Manual) Abs Neuts (Manual) Lymphocytes # (Manual) Monocytes # (Manual) Toxic Granulation Dohle Bodies Platelet Estimate Large Platelets Plt Morphology Comment RBC Morphology Kel[place] Cells Acanthocytes (Spur) APTT Anion Gap 12 Estim Creat Clear Calc 112.3 Estimated GFR > 60 Random Glucose 88 Lactic Acid Calcium 8.3 L Magnesium Total Bilirubin AST ALT Alkaline Phosphatase Total Creatine Kinase Total Protein Albumin Urine Opiates Screen Not Detected Ur Buprenorphine Scrn Not Detected Ur Oxycodone Screen Not Detected Urine Methadone Screen Positive H Urine Fentanyl Screen Not Detected Ur Barbiturates Screen Not Detected Ur Phencyclidine Scrn Not Detected Ur Amphetamines Screen Not Detected U Benzodiazepines Scrn Not Detected Urine Cocaine Screen POSITIVE H U Marijuana (THC) Screen POSITIVE H Hep Bs Antigen Negative Hep Bs Antibody NONREACTIVE Hep B Core Total Ab Nonreactive Hepatitis C Ab (EIA) Nonreactive HIV 1&2 Ab/P24 Ag 4thGn Nonreactive Influenza Type A (PCR) Influenza Type B (PCR) RSV RNA Qual (PCR) SARS-CoV-2 RNA (RT-PCR) S. pyogenes GrpA CED Assessment and Plan (1) Abnormal weight loss: Status: Acute Plan 54M PMH opiate dependence on methadone, denies ivda, presented with 1 week of feeling sick Multifocal pneumonia Ceftriaxone, azithromycin, follow up respiratory viral panel, urine Legionella, urine strep, blood cultures hiv negative if atypical panel negative and no improvement consider pulm eval moderate protein calorie malnutrition with significant weight loss po intake encouraged no obvious malignancy on imaging, but will need follow up chest imaging after treatment and age appropriate cancer screening opiate dependence methadone dvt prophylaxis - lovenox full code reason for continued hospitalization: treating pneumonia in high risk frail patient with significant weight loss, awaiting work up Quality Stroke Does the patient have a stroke diagnosis?: No VTE Prior VTE?: No VTE Risk Level:: Medical - moderate - high VTE Device Contraindication: Treatment Not Indicated VTE Drug Contraindication: N/A - Med Ordered
[2025-02-11 10:31] VITALS: BMI 14.7
--- NOTE | 2025-02-11 10:37 | MHC.CLN ---
PT IS MODERATELY MALNOURISHED-QUALIFIES FOR NON-SEVERE MALNUTRITION IN CONTEXT OF SOCIAL, BEHAVIORAL/ENVIRONMENTAL PT WITH MILDLY DEPLETED SUBCUTANEOUS FAT AND MUSCLE MASS WITH BMI 14.7 AND POOR PO INTAKE PT REPORTED 30# WT LOSS X 1 WEEK BUT DID NOT MEASURE PREVIOUS WT HX FROM 04/01/20 72.5KG (LAST RECORDED WT) PT WITH 35% NONSIGNIFICANT WT LOSS X 4 YEARS PT POSITIVE FOR COCAINE UPON ADMISSION AND MAY BE CONTRIBUTOR TO RECENT WT LOSS REGULAR DIET PT RECEPTIVE TO DRINKING SUPPLEMENT (PREFERS LATANYA) RECOMMEND ADDING ENSURE TID TO INCREASE KCALS SUPP TO PROVIDE 1050KCALS, 60G PROTEIN MONITOR PO INTAKE AND ENCOURAGE SUPPLEMENTS SEE FULL ASSESSMENT
[2025-02-11] MEDS: methADONE HCl 20 MG/2 ML ORAL.CONC 105 MG PO (11:03)
--- NOTE | 2025-02-11 14:35 | MHC.CM.PN ---
Patient lives in a home w/ his mother. Functionally independent. Denies use of DME or services. Methadone through [facility] [place]. PCP @ [facility] No HCP. CM provided education and offered assistance. Patient declined. DP: Goal is home self care. Car in [facility] lot for self transport. CM will continue to follow.
[2025-02-11 15:24] VITALS: BP 115/81; PULSE 62; RESP 18; TEMP 36.5; O2SAT 92
[2025-02-11 19:41] VITALS: BP 120/73; PULSE 63; RESP 18; TEMP 37.2; O2SAT 91
[2025-02-12 03:52] VITALS: BP 127/81; PULSE 65; RESP 18; TEMP 37.1; O2SAT 91
[2025-02-12 06:58] VITALS: BP 125/72; PULSE 69; RESP 16; TEMP 36.6; O2SAT 94
--- NOTE | 2025-02-12 08:42 | PM.CNPUL ---
History of Present Illness History of Present Illness Consult date: 02/12/25 Chief complaint: pneumonia Narrative: This is An inpatient pulmonary consultation. The patient is a 54-year-old gentleman with PMH of polysubstance abuse, opiate dependence on methadone, denies ivda, presented with 1 week of feeling sick . Patient is a vague historian, states on week prior to presentation he started to have fever, fatigue, loss of appetite, shortness breath, yellowish sputum. Reports 30 lb weight loss over that week, but did not measure. denies sick contacts, chest pain, n/v/d, abdominal pain. in ED, CT chest with bilateral opacities most consistent with multifocal pneumonia though malignancy not ruled out, report of air under left diaphragm. The patient is still having some chest congestion. He states he feels a little bit better. Appears to be very cachectic. Does have high risk for exposures to tuberculosis and also risk for blood borne transmitted diseases. Review of Systems Constitutional: Constitutional: Reports fatigue, Reports fever(s), Reports malaise and Reports weight loss Eyes: Eyes: Reports no additional eye complaints ENT: Reports system reviewed and no additional complaints, except as documented Cardiovascular: Cardiovascular: Reports chest pain Respiratory: Respiratory: Reports chest congestion, Reports cough, Denies hemoptysis, Reports pain on inspiration and Denies wheezing Gastrointestinal: Gastrointestinal: Denies melena Genitourinary: Genitourinary: Reports no additional male genitourinary complaints Musculoskeletal: Musculoskeletal: Reports myalgias Neurologic: Reports system reviewed and no additional complaints, except as documented Endocrine: Endocrine: Reports fatigue Hematologic/Lymphatic: Hematologic/Lymphatic: Reports no additional hematologic/lymphatic complaints Allergic/Immunologic: Allergic/Immunologic: Denies wheezing [facility] Past Medical History Medical History (Updated 02/12/25 @ 08:49 by Emanuel Keenan MD) Polysubstance abuse Cachexia Opiate dependence Social History Social History Household Members: Family Housing: House Do you presently have visiting nurse or other home services: No Patient Tobacco Use Status: Never used Tobacco Tobacco use type: Cigarette Cigarettes Per Day: 2 Second Hand Smoke Exposure: No service: No Meds Allergies Allergy/AdvReac Type Severity Reaction Status Date / Time No Known Allergies (No Known Allergy Unverified 02/10/25 10:27 Allergies*) Active Medications: Current Medications Acetaminophen (Acetaminophen 325 Mg Tablet) 650 mg PO Q6H PRN PRN Reason: Pain, Mild 1-3,fever,headache Azithromycin (Azithromycin 500 Mg Tablet) 500 mg PO Q24H [facility] Last Admin: 02/11/25 14:29 Dose: 500 mg Calcium Carbonate (Calcium Carbonate 750 Mg Tab.Chew) 750 mg PO Q4H PRN PRN Reason: Heartburn Enoxaparin Sodium (Enoxaparin Sodium 40 Mg/0.4 Ml Syringe) 40 mg SUBCUT Q24H [facility] Last Admin: 02/12/25 08:34 Dose: Not Given Ceftriaxone Sodium 1 gm/ (Sodium Chloride) 50 mls @ 100 mls/hr IV Q24H [facility] Last Infusion: 02/11/25 11:46 Dose: Infused Magnesium Hydroxide (Milk Of Magnesia 30 Ml Oral.Susp) 30 ml PO DAILY PRN PRN Reason: Constipation Melatonin (Melatonin 3 Mg Tablet) 6 mg PO BEDTIME PRN PRN Reason: Insomnia Methadone HCl (Methadone Hcl 20 Mg/2 Ml Oral.Conc) 105 mg PO DAILY [facility] Last Admin: 02/11/25 11:03 Dose: 105 mg Sodium Chloride (0.9 % Sodium Chloride Flush 3 Ml Syringe) 3 ml IVFLUSH QSHIFT [facility] Last Admin: 02/12/25 00:40 Dose: Not Given Home Medications ?Medication ?Instructions ?Recorded ?Confirmed ?Last Taken ?Type methadone 10 mg/mL oral concentrate 105 mg PO DAILY 02/11/25 02/11/25 Unknown History Physical Exam Vital Signs: Vital Signs: Last Vital Signs Temp 98 F 02/12/25 06:58 Pulse 69 02/12/25 06:58 Resp 16 02/12/25 06:58 BP 125/72 02/12/25 06:58 Pulse Ox 94 02/12/25 06:58 O2 Del Method Room Air 02/12/25 06:58 BMI result Body Mass Index 14.7 Appearance: Alert. Oriented X3. No acute distress. Head: Normal external exam. Normocephalic. Atraumatic. Eyes: PERRLA. EOMI. Conjunctiva and sclera normal. Eyelids normal. ENT: Pharynx normal. Uvula midline. Moist mucous membranes. Neck: Normal inspection. Neck supple. FROM. No adenopathy. Thyroid Normal. No meningeal signs. No neck mass noted. CVS: Normal heart rate and rhythm. Heart sound normal. No murmurs noted. Pulses normal throughout. Respiratory: No respiratory distress. Painless inspiration. Breath sounds normal. No wheezes/rales/rhonchi noted. Chest nontender. No accessory muscle usage noted or decreased air movement noted. Back: Full range of motion noted. Skin: Skin warm and dry. Normal skin color. Normal skin turgor. No rashes/lesions/lacerations noted. Extremities: TTP of left forearm at the proximal aspect c mild erythema. No streaking/induration/fluctuance/abrasions/lacerations noted. Patient with full range of motion of elbow/wrist and hand. Patient mild tenderness to palpation to left wrist. Otherwise all other Extremities exhibit normal range of motion and nontender. Neuro: Oriented X 3. No motor deficit. No sensory deficit. Reflexes normal. Const: General: comfortable and ill appearing Nutritional Appearance: cachectic HEENT: Head: Yes normocephalic Neck: Neck: Yes supple Chest: Chest palpation & inspection: normal inspection of the chest Resp: Effort & Inspection: normal respiratory effort, able to speak in complete sentences and Actively coughing Auscultation: diminished lung sounds Cardio: Heart sounds: S1 normal heart sound present and S2 normal heart sound present GI: Palpation (GI): Soft to palpation Skin: General skin exam: no rashes or lesions noted Extrem: General: No cyanosis Results Laboratory Findings 02/11/25 05:27 02/11/25 05:27 Abnormal lab findings: Abnormal Labs 02/10/25 02/10/25 02/11/25 10:42 15:53 05:27 RBC 3.75 L 3.61 L Hgb 11.5 L 10.9 L Hct 33.6 L 32.3 L Neutrophils % (Manual) 80 H Lymphocytes % (Manual) 15 L Sodium 134 L Random Glucose 128 H Calcium 8.3 L Albumin 3.3 L Urine Methadone Screen Positive H Urine Cocaine Screen POSITIVE H U Marijuana (THC) Screen POSITIVE H Microbiology: Microbiology 02/10/25 11:48 Blood - Venous Blood Culture - Preliminary No growth after 24 hours. 02/10/25 11:29 Blood - Venous Blood Culture - Preliminary No growth after 24 hours. Assessment and Plan (1) Pneumonia: Qualifiers: Pneumonia type: due to unspecified organism Laterality: unspecified laterality Lung location: unspecified part of lung Qualified Code(s): J18.9 - Pneumonia, unspecified organism Status: Acute (2) Cachexia: Status: Acute (3) Polysubstance abuse: Status: Acute (4) Abnormal weight loss: Status: Acute Plan recheck HIV/p24 antigen, TB, syphyllis TB precautions Sputum cx and AFB continue abx repeat CXR today ID referral Procedures Date of Service Date of Service: 02/12/25
[2025-02-12 09:04] LABS: Chlamydia pneumoniae PCR Not Detected (Not Detect.); Coronavirus 229E PCR Not Detected (Not Detect.); Coronavirus HKU1 PCR Not Detected (Not Detect.); Coronavirus NL63 PCR Not Detected (Not Detect.); Coronavirus OC43 PCR Not Detected (Not Detect.); RSV PCR Not Detected (Not Detect.); Rhino/Enterovirus PCR Not Detected (Not Detect.)
[2025-02-12] MEDS: methADONE HCl 20 MG/2 ML ORAL.CONC 105 MG PO (09:07)
[2025-02-12 09:48] LABS: Influenza A H1 PCR Not Detected (Not Detect.); Influenza A H1-2009 PCR Not Detected (Not Detect.); Influenza A H3 PCR Not Detected (Not Detect.); SARS-CoV-2 PCR Not Detected (Not Detect.)
[2025-02-12 10:18] LABS: Syphilis Screen Nonreactive (Nonreactive)
[2025-02-12 12:02] LABS: MRSA Nasal PCR POSITIVE (Negative); SA Nasal PCR POSITIVE (Negative)
[2025-02-12 12:42] LABS: EOS QC POS YES; EOS Stain Quality OK YES
--- NOTE | 2025-02-12 13:03 | P.PNIM_ITS ---
Subjective Subjective Date of Service: 02/12/25 Interval History: pneumonia Review of Systems generalised weak no new c/o. Review of Systems: Yes all other systems are reviewed and are negative Physical Exam 2 Exam: Exam: Appearance: Alert.? Oriented X3.? cvs: rrr, [id number] . res: air entry diminshed abd: no rebound or guarding ,nt, bs present. ext pulses present , no cyanosis . neuro: axo3 , nonfocal. Vital Signs: Vital Signs: Last Vital Signs Temp 98 F 02/12/25 06:58 Pulse 69 02/12/25 06:58 Resp 16 02/12/25 06:58 BP 125/72 02/12/25 06:58 Pulse Ox 94 02/12/25 06:58 O2 Del Method Room Air 02/12/25 06:58 BMI result Body Mass Index 14.7 Objective Data Active Medications Acetaminophen (Acetaminophen 325 Mg Tablet) 650 mg PO Q6H PRN PRN Reason: Pain, Mild 1-3,fever,headache Azithromycin (Azithromycin 500 Mg Tablet) 500 mg PO Q24H [facility] Last Admin: 02/11/25 14:29 Dose: 500 mg Documented By: ROZINA Calcium Carbonate (Calcium Carbonate 750 Mg Tab.Chew) 750 mg PO Q4H PRN PRN Reason: Heartburn Enoxaparin Sodium (Enoxaparin Sodium 40 Mg/0.4 Ml Syringe) 40 mg SUBCUT Q24H [facility] Last Admin: 02/12/25 08:34 Dose: Not Given Documented By: ROZINA Non-Admin Reason: Patient Refused Ceftriaxone Sodium 1 gm/ (Sodium Chloride) 50 mls @ 100 mls/hr IV Q24H [facility] Last Infusion: 02/12/25 12:52 Dose: Infused Documented By: ROZINA Magnesium Hydroxide (Milk Of Magnesia 30 Ml Oral.Susp) 30 ml PO DAILY PRN PRN Reason: Constipation Melatonin (Melatonin 3 Mg Tablet) 6 mg PO BEDTIME PRN PRN Reason: Insomnia Methadone HCl (Methadone Hcl 20 Mg/2 Ml Oral.Conc) 105 mg PO DAILY [facility] Last Admin: 02/12/25 09:07 Dose: 105 mg Documented By: ROZINA Co-signed By: VERO Sodium Chloride (0.9 % Sodium Chloride Flush 3 Ml Syringe) 3 ml IVFLUSH QSHIFT [facility] Last Admin: 02/12/25 09:10 Dose: Not Given Documented By: ROZINA Non-Admin Reason: unable to scan Labs 02/11/25 05:27 02/11/25 05:27 Labs: Laboratory Results - last 24 hr 02/10/25 02/11/25 02/11/25 17:22 11:13 18:56 Eos Smear Eosinophils Nasal Screen MRSA (PCR) Nasal S. aureus Screen Nasal MRSA/S.aureus Interp IgG Total 1194 IgA Total 598 H IgM 94 Respiratory Panel Mustafa See Note See Note T.pallidum Ab (EIA) Adenovirus (Rapid PCR) Not Detected TNP B.pert (TEM-PCR) Not Detected TNP B.parapertussis DNA PCR Not Detected TNP C. pneumoniae DNA (PCR) Not Detected TNP Coronavirus OC43 (PCR) Not Detected TNP Coronavirus HKU1 (PCR) Not Detected TNP Coronavirus 229E (PCR) Not Detected TNP Coronavirus NL63 (PCR) Not Detected TNP Human Metapneumovir PCR Not Detected TNP Influenza A (RT-PCR) Not Detected TNP Influenza A (H1) PCR Not Detected TNP Influ A (H1/09) PCR Not Detected TNP Influenza A (H3) PCR Not Detected TNP Influenza B (RT-PCR) Not Detected TNP M. pneumoniae (PCR) Not Detected TNP Parainfluenza 1 (PCR) Not Detected TNP Parainfluenza 2 (PCR) Not Detected TNP Parainfluenza 3 (PCR) Not Detected TNP Parainfluenza 4 (PCR) Not Detected TNP RSV (PCR) Not Detected TNP Entero/Rhino (PCR) Not Detected TNP SARS-CoV-2 RNA (RT-PCR) Not Detected TNP 02/11/25 02/12/25 02/12/25 20:28 09:36 09:49 Eos Smear Eosinophils NEGATIVE Nasal Screen MRSA (PCR) POSITIVE A Nasal S. aureus Screen POSITIVE A Nasal MRSA/S.aureus Interp SEE NOTE IgG Total IgA Total IgM Respiratory Panel Mustafa T.pallidum Ab (EIA) Nonreactive Adenovirus (Rapid PCR) B.pert (TEM-PCR) B.parapertussis DNA PCR C. pneumoniae DNA (PCR) Coronavirus OC43 (PCR) Coronavirus HKU1 (PCR) Coronavirus 229E (PCR) Coronavirus NL63 (PCR) Human Metapneumovir PCR Influenza A (RT-PCR) Influenza A (H1) PCR Influ A (H1/) PCR Influenza A (H3) PCR Influenza B (RT-PCR) M. pneumoniae (PCR) Parainfluenza 1 (PCR) Parainfluenza 2 (PCR) Parainfluenza 3 (PCR) Parainfluenza 4 (PCR) RSV (PCR) Entero/Rhino (PCR) SARS-CoV-2 RNA (RT-PCR) Microbiology Microbiology Results: Microbiology 02/12/25 09:49 Gram Stain - Final Sputum - Expectorated 02/10/25 11:48 Blood Culture - Preliminary Blood - Venous No growth after 24 hours. 02/10/25 11:29 Blood Culture - Preliminary Blood - Venous No growth after 24 hours. Assessment and Plan (1) Pneumonia: Status: Acute Plan 54M PMH opiate dependence on methadone, denies ivda, presented with 1 week of feeling sick Multifocal pneumonia Ceftriaxone, azithromycin, follow up respiratory viral panel, urine Legionella, urine strep, blood cultures neg@24hrs hiv negative cxr-seems similar ,no change added afb ,tspot,isolation pulm eval noted . id eval added. moderate protein calorie malnutrition with significant weight loss po intake encouraged no obvious malignancy on imaging, but will need follow up chest imaging after treatment and age appropriate cancer screening opiate dependence methadone dvt prophylaxis - lovenox full code reason for continued hospitalization: treating pneumonia in high risk frail patient with significant weight loss, awaiting work up Quality Stroke Does the patient have a stroke diagnosis?: No VTE Prior VTE?: No VTE Risk Level:: Medical - moderate - high VTE Device Contraindication: Treatment Not Indicated VTE Drug Contraindication: N/A - Med Ordered
--- NOTE | 2025-02-12 13:13 | P.CNID_ITS ---
History of Present Illness Data of Consult Service Date: 02/12/25 Requesting physician: Lisbeth Estevez Primary Care Provider: [facility] HPI Reason for consult: lung nodules,infiltrate He presents with weakness and cough over last month and weight loss. Tox screen shows cocaine and marijuana in addition to methadone. He has no hypoxia and no fever at this time CT chest shows numerous nodules He has no TB history and HIV negative. Review of Systems 2 Review of Systems: Yes all other systems are reviewed and are negative [facility] Past Medical History Medical History Polysubstance abuse Cachexia Opiate dependence Family History Family history: reviewed and not pertinent Social History Social History Household Members: Family Housing: House Do you presently have visiting nurse or other home services: No Patient Tobacco Use Status: Never used Tobacco Tobacco use type: Cigarette Cigarettes Per Day: 2 Second Hand Smoke Exposure: No service: No Meds Allergies Allergy/AdvReac Type Severity Reaction Status Date / Time No Known Allergies (No Known Allergy Unverified 02/10/25 10:27 Allergies*) Active Medications: Current Medications Acetaminophen (Acetaminophen 325 Mg Tablet) 650 mg PO Q6H PRN PRN Reason: Pain, Mild 1-3,fever,headache Azithromycin (Azithromycin 500 Mg Tablet) 500 mg PO Q24H [facility] Last Admin: 02/11/25 14:29 Dose: 500 mg Calcium Carbonate (Calcium Carbonate 750 Mg Tab.Chew) 750 mg PO Q4H PRN PRN Reason: Heartburn Enoxaparin Sodium (Enoxaparin Sodium 40 Mg/0.4 Ml Syringe) 40 mg SUBCUT Q24H [facility] Last Admin: 02/12/25 08:34 Dose: Not Given Ceftriaxone Sodium 1 gm/ (Sodium Chloride) 50 mls @ 100 mls/hr IV Q24H [facility] Last Infusion: 02/12/25 12:52 Dose: Infused Magnesium Hydroxide (Milk Of Magnesia 30 Ml Oral.Susp) 30 ml PO DAILY PRN PRN Reason: Constipation Melatonin (Melatonin 3 Mg Tablet) 6 mg PO BEDTIME PRN PRN Reason: Insomnia Methadone HCl (Methadone Hcl 20 Mg/2 Ml Oral.Conc) 105 mg PO DAILY [facility] Last Admin: 02/12/25 09:07 Dose: 105 mg Sodium Chloride (0.9 % Sodium Chloride Flush 3 Ml Syringe) 3 ml IVFLUSH QSHIFT [facility] Last Admin: 02/12/25 09:10 Dose: Not Given Home Medications ?Medication ?Instructions ?Recorded ?Confirmed ?Last Taken ?Type methadone 10 mg/mL oral concentrate 105 mg PO DAILY 02/11/25 Unknown History Physical Exam 2 Vital Signs: Vital Signs: Last Vital Signs Temp 98 F 02/12/25 06:58 Pulse 69 02/12/25 06:58 Resp 16 02/12/25 06:58 BP 125/72 02/12/25 06:58 Pulse Ox 94 02/12/25 06:58 O2 Del Method Room Air 02/12/25 06:58 BMI result Body Mass Index 14.7 Const: Other: cachexia,resistant to exam HEENT: Head: Yes normal to inspection Face and sinus: Yes normal facial exam Mouth: Normal oral and palatal mucosa present Teeth and gingiva: d entition normal Eyes: General: appearance normal, both eyes and all related structures P upils: Equal, round and reactive pupils present Resp: Effort & Inspection: normal respiratory effort Cardio: Rate: regular rate Rhythm: regular rhythm GI: Palpation (GI): Soft to palpation and nontender : General: Yes no CVA tenderness Back/Spine/Pelvis: Back: no CVA tenderness Skin: General skin exam: no rashes or lesions noted Neuro: General: moves all extremities Cranial nerves: Yes Equal, round and reactive pupils present Extrem: General: Yes normal to inspection Psych: Appearance: grossly normal Results Labs 02/11/25 05:27 02/11/25 05:27 Microbiology Microbiology Results: Microbiology 02/12/25 09:49 Sputum - Expectorated Gram Stain - Final 02/10/25 11:48 Blood - Venous Blood Culture - Preliminary No growth after 24 hours. 02/10/25 11:29 Blood - Venous Blood Culture - Preliminary No growth after 24 hours. Assessment and Plan (1) Opiate dependence: Status: Acute (2) Polysubstance abuse: Status: Acute (3) Abnormal weight loss: Status: Acute (4) Pneumonia: Qualifiers: Laterality: unspecified laterality Lung location: unspecified part of lung Pneumonia type: due to unspecified organism Qualified Code(s): J18.9 - Pneumonia, unspecified organism Status: Acute Plan This is possibly due to pneumoconiosis from drug use/talc/environmental exposures/fungus He also has MRSA nares so possible prior septic emboli/endocarditis. Less likely is tuberculosis Treat with Vancomycin pending blood cultures as well as azithromycin and Ceftriaxone Can stop Ceftriaxone tomorrow if blood cultures negative and stop Vancomycin also and switch to po Doxycycline unless TTE shows endocarditis. Await blood cultures. Continue respiratory isolation until T spot back and reasonable to discontinue it if negative (not producing sputum now). Check echo evaluate endocarditis. Check blood crytococcal antigen and galactomannan,Fungitel If all unremarkable and no bacteremia discharge on po Doxycycline 100 mg bid for 14 d total. Addiction management
--- NOTE | 2025-02-12 13:27 | MHC.CM.PN ---
Pt. not ready to DC, still assessing to determine tx.
--- NOTE | 2025-02-12 14:52 | MHC.CLN ---
F/U DIET RX: REGULAR. ENSURE TID TO PROMOTE NUTRITIONAL INTAKE. SUPPLEMENT PROVIDES 1050 KCALS, 60 G PROTEIN. PO INTAKE APPEARS TO BE VERY GOOD, 75-100%. MODERATELY MALNOURISHED WITH BMI=14.7. MONITOR PO INTAKE AND ENCOURAGE SUPPLEMENTS.
[2025-02-12 15:55] VITALS: BP 118/75; PULSE 68; RESP 16; TEMP 36.6; O2SAT 92
[2025-02-12 20:00] VITALS: BP 125/77; PULSE 73; RESP 16; TEMP 36.8; O2SAT 92
[2025-02-12] MEDS: 0.9 % Sodium Chloride Flush 3 ML SYRINGE IVFLUSH (21:48)
[2025-02-12 23:13] LABS: Proteinase 3 PR3 Antibodies <1.0 AI
[2025-02-13 05:30] VITALS: BP 127/70; PULSE 65; RESP 18; TEMP 36.2; O2SAT 93
[2025-02-13 06:51] VITALS: BP 122/59; PULSE 73; RESP 15; TEMP 36.6; O2SAT 99
[2025-02-13] MEDS: methADONE HCl 20 MG/2 ML ORAL.CONC 105 MG PO (09:22)
[2025-02-13] MEDS: 0.9 % Sodium Chloride Flush 3 ML SYRINGE IVFLUSH ×2 (09:22→20:46)
--- NOTE | 2025-02-13 15:02 | HO.PM.IMPN ---
Subjective Subjective Date of Service: 02/13/25 Interval History: pneumonia Review of Systems sob and cough improving Review of Systems: Yes all other systems are reviewed and are negative Physical Exam Exam: Exam: Appearance: Alert.? Oriented X3.? cvs: rrr, [id number] . res: air entry diminshed abd: no rebound or guarding ,nt, bs present. ext pulses present , no cyanosis . neuro: axo3 , nonfocal. Vital Signs: Vital Signs: Last Vital Signs Temp 98 F 02/13/25 06:51 Pulse 73 02/13/25 06:51 Resp 15 02/13/25 06:51 BP 122/59 L 02/13/25 06:51 Pulse Ox 99 02/13/25 06:51 O2 Del Method Room Air 02/13/25 06:51 BMI result Body Mass Index 14.7 Objective Data Active Medications Acetaminophen (Acetaminophen 325 Mg Tablet) 650 mg PO Q6H PRN PRN Reason: Pain, Mild 1-3,fever,headache Calcium Carbonate (Calcium Carbonate 750 Mg Tab.Chew) 750 mg PO Q4H PRN PRN Reason: Heartburn Doxycycline Monohydrate (Doxycycline Monohydrate 100 Mg Capsule) 100 mg PO Q12H [facility]S [facility] 234 BEDS AT [facility] Last Admin: 02/13/25 13:37 Dose: 100 mg Documented By: SIDNEY Enoxaparin Sodium (Enoxaparin Sodium 40 Mg/0.4 Ml Syringe) 40 mg SUBCUT Q24H [facility]S [facility] 234 BEDS AT THE [facility] Last Admin: 02/13/25 09:24 Dose: Not Given Documented By: SIDNEY Non-Admin Reason: Patient Refused Ceftriaxone Sodium 1 gm/ (Sodium Chloride) 50 mls @ 100 mls/hr IV Q24H [facility]S [facility]CLUDE 234 BEDS AT THE [facility] Last Infusion: 02/13/25 12:24 Dose: Infused Documented By: SIDNEY Magnesium Hydroxide (Milk Of Magnesia 30 Ml Oral.Susp) 30 ml PO DAILY PRN PRN Reason: Constipation Melatonin (Melatonin 3 Mg Tablet) 6 mg PO BEDTIME PRN PRN Reason: Insomnia Methadone HCl (Methadone Hcl 20 Mg/2 Ml Oral.Conc) 105 mg PO DAILY COUNTS INCLUDE 234 BEDS AT THE [facility] Last Admin: 02/13/25 09:22 Dose: 105 mg Documented By: SIDNEY Co-signed By: KM Pharmacy Consult (Consult Rx Vancomycin Dosing) 1 each MISCELLANE DAILY PRN PRN Reason: Consult order Sodium Chloride (0.9 % Sodium Chloride Flush 3 Ml Syringe) 3 ml IVFLUSH QSHIFT COUNTS INCLUDE 234 BEDS AT THE [facility] Last Admin: 02/13/25 15:00 Dose: Not Given Documented By: SIDNEY Non-Admin Reason: Previously Administered Labs 02/11/25 05:27 02/11/25 05:27 Labs: Laboratory Results - last 24 hr 02/11/25 18:56 Proteinase 3 (PR3) Ab <1.0 Myeloperoxidase Ab <1.0 Microbiology Microbiology Results: Microbiology 02/12/25 09:49 Gram Stain - Final Sputum - Expectorated Sputum Culture - Preliminary 02/10/25 11:48 Blood Culture - Preliminary Blood - Venous No growth after 48 hours. 02/10/25 11:29 Blood Culture - Preliminary Blood - Venous No growth after 48 hours. Assessment and Plan (1) Pneumonia: Status: Acute Plan 54M PMH opiate dependence on methadone, denies ivda, presented with 1 week of feeling sick Multifocal pneumonia Ceftriaxone, azithromycin, follow up respiratory viral panel, urine Legionella, urine strep, blood cultures neg@24hrs hiv negative cxr-seems similar ,no change afbx2 sent ,tspot,isolation pulm eval noted . id eval noted -added blood crytococcal antigen and galactomannan,Fungitel. blood culture negative (avoid vanco) nasal mrsa positive doxy/ceftriaxone , dc azithormycin, dc isolation once t spot back . TTE moderate protein calorie malnutrition with significant weight loss po intake encouraged no obvious malignancy on imaging, but will need follow up chest imaging after treatment and age appropriate cancer screening opiate dependence methadone dvt prophylaxis - lovenox full code reason for continued hospitalization: treating pneumonia in high risk frail patient with significant weight loss, awaiting work up Quality Stroke Does the patient have a stroke diagnosis?: No VTE Prior VTE?: No VTE Risk Level:: Medical - moderate - high VTE Device Contraindication: Treatment Not Indicated VTE Drug Contraindication: N/A - Med Ordered
[2025-02-13 15:18] VITALS: BP 110/64; PULSE 69; RESP 18; TEMP 36.6; O2SAT 94
[2025-02-13 19:19] VITALS: BP 118/80; PULSE 78; RESP 18; TEMP 37.1; O2SAT 94
[2025-02-14 03:29] LABS: Strep Pneumo Ag urine Detected (Not Detected)
[2025-02-14 03:40] LABS: HIV Num 1 0.07 S/CO (0.00-0.99)
--- NOTE | 2025-02-14 07:00 | CA_ITS ---
Transthoracic Echocardiogram Patient (Last, First, Middle): Igor Haskins Luis Gender: M Date of : 1970 Age: 54 Procedure Date: 02/14/2025 Procedure Type: Transthoracic Echocardiogram Location: S3E Height: 177.8 cm Weight: 46.27 kg BSA: 1.57 m2 Heart Rate: bpm Cartoon Designer: TO Referring MD: Lisbeth Estevez MD Refrigerating Engineer Head: Shaggy Brownlee MD Symptoms: ? endocarditis Study Quality: Fair ECG Rhythm: Sinus Conclusions: - Essentially normal study without any obvious evidence of vegetations Findings Left Ventricle Normal left ventricular size, thickness, and systolic function. The visually estimated ejection fraction is between 55-60%. Spectral Doppler is indicative of a normal filling pattern. Right Ventricle Normal right ventricular cavity size and systolic function. Atria Both atria are normal in size. There is no evidence of interatrial shunt. Aortic Valve Normal aortic valve structure and function. There is no aortic valve stenosis. There is no aortic valve regurgitation. Mitral Valve Normal mitral valve structure and function. There is no mitral valve regurgitation. There is no mitral valve stenosis. Pulmonic Valve The pulmonic valve is likely normal. Tricuspid Valve Normal tricuspid valve structure. Tricuspid regurgitation envelope is inadequate for calculation of right ventricular systolic pressure. Normal right atrial pressure. Great Vessels All visible segments of the aorta are normal in size. The pulmonary artery was not well visualized. Venous The inferior vena cava is normal in size and collapses greater than 50% with inspiration. Pericardium/Pleural There is no evidence of pericardial effusion. Prior Study Comparison No prior study available for comparison. Measurements 2D Linear Measurements IVSd: 0.61 0.6-0.9/0.6-1.0 cm LVIDd: 4.12 3.9-5.3/4.2-5.9 cm LVIDd Index: 2.62 2.4-3.2/2.2-3.1 cm/m2 LVIDs: 3.15 2.0-3.6 cm LVPWd: 0.74 0.7-1.1 cm LA Diam: 2.40 2.7-3.8/3.0-4.0 cm LAIDs Index: 1.53 1.5-2.3 cm/m2 LV Mass: 97.39 67-162/88-224 g LV Mass Index: 62.03 43-95/49-115 g/m2 LVOT Diam: 2.30 3.0+(-)1.3 cm 2D Systolic Function EF 4C: 56.70 >55% EF 2C: 58.90 >55% EF BiP: 58.00 >55% Mitral Valve MV Pk E: 0.43 MV PK A: 0.41 MV Decel Time: 298.00 E/A: 1.10 E'Lateral: 13.10 E'Medial: 10.00 E/E' Med: 4.30 E/E' Lat: 3.30 PHT: 87.00 MVA PHT: 2.53 Decel [place]: 1.44 Aortic Valve AoV Pk Ker[place]: 1.12 AoV Mn Ker[place]: 0.73 AoV VTI: 0.17 AoV Pk Grad: 5.00 Aov Mn Grad: 3.00 AINSLEY Cont.VTI: 3.13 LVOT LVOT Pk Ker[place]: 0.86 LVOT Mn Kerwin: 0.56 LVOT VTI: 0.13 LVOT Pk Grad: 3.00 LVOT Mn Grad: 1.00 LVOT Diam: 2.30 LVOT Area: 4.15 Diastolic Function MV Pk E: 0.43 MV Pk A: 0.41 E/A: 1.10 E'Medial: 10.00 E/E' Med: 4.30 E' Laterial: 13.10 E/E' Lat: 3.30 Right Ventricle TAPSE (mm): 20.30 TVS' Kerwin: 14.00 Tricuspid Valve RA Press: 3.00 Great Vessels Aorta Sinus of Valsalva: 3.10 2.0-3.5 cm Updated in Other Vendor System with Status of Final Shaggy Brownlee MD electronically signed on 02/15/2025 12:45:29 PM with status of Final
[2025-02-14 07:31] VITALS: BP 114/59; PULSE 68; RESP 16; TEMP 36.9; O2SAT 94
[2025-02-14 08:30] LABS: Creatinine Clr Calc Pharmacy 112.3; Estimated Glomerular Filt Rate > 60
[2025-02-14] MEDS: 0.9 % Sodium Chloride Flush 3 ML SYRINGE IVFLUSH ×2 (08:31→23:55)
[2025-02-14] MEDS: methADONE HCl 20 MG/2 ML ORAL.CONC 105 MG PO (08:36)
--- NOTE | 2025-02-14 09:11 | P.PNPL_ITS ---
Subjective Subjective Date of Service: 02/14/25 Interval history: The patient was seen and examined. 2 neg AFB, last one today. Tspot pending. MRSA screen positive. Will complete 2 weeks of doxycycline. Objective Data Labs 02/11/25 05:27 02/14/25 08:08 Labs: Laboratory Results - last 24 hr 02/10/25 02/12/25 02/14/25 15:53 16:48 08:08 Creatinine 0.50 Estim Creat Clear Calc 112.3 Estimated GFR > 60 HIV 1&2 Ab/P24 Ag 4thGn Nonreactive Ur Strep pneumoniae Ag Detected A Microbiology Microbiology Results: Microbiology 02/12/25 09:49 Sputum - Expectorated Gram Stain - Final 02/12/25 09:49 Sputum - Expectorated Sputum Culture - Final 02/10/25 11:48 Blood - Venous Blood Culture - Preliminary No growth after 48 hours. 02/10/25 11:29 Blood - Venous Blood Culture - Preliminary No growth after 48 hours. Review of Systems Constitutional: Denies fever(s) and Reports weight loss Eyes: Reports no additional eye complaints Reports system reviewed and no additional complaints, except as documented Cardiovascular: Reports chest pain Respiratory: Reports chest congestion, Reports cough, Denies hemoptysis, Denies pain on inspiration and Denies wheezing Gastrointestinal: Denies melena Genitourinary: Reports no additional male genitourinary complaints Musculoskeletal: Reports myalgias Reports system reviewed and no additional complaints, except as documented Hematologic/Lymphatic: Reports no additional hematologic/lymphatic complaints Allergic/Immunologic: Denies wheezing Physical Exam 2 Vital Signs: Vital Signs: Last Vital Signs Temp 98.4 F 02/14/25 07:31 Pulse 68 02/14/25 07:31 Resp 16 02/14/25 07:31 BP 114/59 L 02/14/25 07:31 Pulse Ox 94 02/14/25 07:31 O2 Del Method Room Air 02/14/25 07:31 BMI result Body Mass Index 14.7 Appearance: Alert. Oriented X3. No acute distress. Head: Normal external exam. Normocephalic. Atraumatic. Eyes: PERRLA. EOMI. Conjunctiva and sclera normal. Eyelids normal. ENT: Pharynx normal. Uvula midline. Moist mucous membranes. Neck: Normal inspection. Neck supple. FROM. No adenopathy. Thyroid Normal. No meningeal signs. No neck mass noted. CVS: Normal heart rate and rhythm. Heart sound normal. No murmurs noted. Pulses normal throughout. Respiratory: No respiratory distress. Painless inspiration. Breath sounds normal. No wheezes/rales/rhonchi noted. Chest nontender. No accessory muscle usage noted or decreased air movement noted. Neuro: Oriented X 3. No motor deficit. No sensory deficit. Reflexes normal. Const: General: comfortable and ill appearing Nutritional Appearance: c achectic HEENT: Head: Yes normocephalic Neck: Neck: Yes supple Chest: Chest palpation & inspection: normal inspection of the chest Resp: Effort & Inspection: normal respiratory effort, able to speak in complete sentences and Actively coughing Auscultation: diminished lung sounds Cardio: Heart sounds: S1 normal heart sound present and S2 normal heart sound present GI: Palpation (GI): Soft to palpation Skin: General skin exam: no rashes or lesions noted Extrem: General: No cyanosis Procedures Date of Service Date of Service: 02/14/25 Assessment and Plan Assessment and plan (1) Pneumonia: Status: Acute (2) Cachexia: Status: Acute (3) Polysubstance abuse: Status: Acute Plan Awaiting last AFB, low suspicion for TB. Primary dx of pneumonia due to MRSA Ok to discharge on PO Doxycycline x 14 days Should have repeat CXR in 3-4 weeks OK to discharge once 3rd Sputum is negative for AFB. Will need to f/u with Tspot and sputum cultures Time Spent With Patient Time: Total time managing care of this patient today ____ minutes. Progress Note: Quality Stroke Does the patient have a stroke diagnosis?: No
--- NOTE | 2025-02-14 13:07 | PC.NURSE ---
Went in patient's room to medicate, before entering nurse could hear patient yelling out and swearing while trying to eat. Upon going in room, patient stated I don't fucking want any of that right now, I want to be left alone , educated patient I have his PO antibiotic, patient was compliant with taking it but refused further assessment. Patient educated to utilize call walker if needed.
--- NOTE | 2025-02-14 13:46 | HO.PM.IMPN ---
Subjective Subjective Date of Service: 02/14/25 Interval History: pneumonia Review of Systems sob/cough improving no fevers Review of Systems: Yes all other systems are reviewed and are negative Physical Exam Exam: Exam: Appearance: Alert.? Oriented X3.? cvs: [id number], [id number] . res: air entry diminshed abd: no rebound or guarding ,nt, bs present. ext pulses present , no cyanosis . neuro: axo3 , nonfocal. Vital Signs: Vital Signs: Last Vital Signs Temp 98.4 F 02/14/25 07:31 Pulse 68 02/14/25 07:31 Resp 16 02/14/25 07:31 BP 114/59 L 02/14/25 07:31 Pulse Ox 94 02/14/25 07:31 O2 Del Method Room Air 02/14/25 07:31 BMI result Body Mass Index 14.7 Objective Data Active Medications Acetaminophen (Acetaminophen 325 Mg Tablet) 650 mg PO Q6H PRN PRN Reason: Pain, Mild 1-3,fever,headache Calcium Carbonate (Calcium Carbonate 750 Mg Tab.Chew) 750 mg PO Q4H PRN PRN Reason: Heartburn Doxycycline Monohydrate (Doxycycline Monohydrate 100 Mg Capsule) 100 mg PO Q12H [facility] Last Admin: 02/14/25 13:06 Dose: 100 mg Documented By: JOSUE Enoxaparin Sodium (Enoxaparin Sodium 40 Mg/0.4 Ml Syringe) 40 mg SUBCUT Q24H [facility] Last Admin: 02/14/25 08:30 Dose: Not Given Documented By: KAILEY Non-Admin Reason: Patient Refused Magnesium Hydroxide (Milk Of Magnesia 30 Ml Oral.Susp) 30 ml PO DAILY PRN PRN Reason: Constipation Melatonin (Melatonin 3 Mg Tablet) 6 mg PO BEDTIME PRN PRN Reason: Insomnia Methadone HCl (Methadone Hcl 20 Mg/2 Ml Oral.Conc) 105 mg PO DAILY [facility] Last Admin: 02/14/25 08:36 Dose: 105 mg Documented By: KAILEY Co-signed By: JO ANN Sodium Chloride (0.9 % Sodium Chloride Flush 3 Ml Syringe) 3 ml IVFLUSH QSHIFT [facility] Last Admin: 02/14/25 08:31 Dose: 3 ml Documented By: KAILEY Labs 02/11/25 05:27 02/14/25 08:08 Labs: Laboratory Results - last 24 hr 02/10/25 02/12/25 02/14/25 15:53 16:48 08:08 Estim Creat Clear Calc 112.3 Estimated GFR > 60 HIV 1&2 Ab/P24 Ag 4thGn Nonreactive Ur Strep pneumoniae Ag Detected A Microbiology Microbiology Results: Microbiology 02/12/25 09:49 Gram Stain - Final Sputum - Expectorated Sputum Culture - Final Assessment and Plan (1) Pneumonia: Status: Acute Plan 54M PMH opiate dependence on methadone, denies ivda, presented with 1 week of feeling sick Multifocal pneumonia Ceftriaxone, azithromycin, follow up respiratory viral panel, urine Legionella, urine strep, blood cultures neg@24hrs hiv negative cxr-seems similar ,no change afbx3 sent ,tspot,isolation pulm eval noted . id eval noted -added blood crytococcal antigen and galactomannan,Fungitel. blood culture negative (avoid vanco) nasal mrsa positive doxy/ceftriaxone , dc azithormycin, dc isolation once t spot back . TTE moderate protein calorie malnutrition with significant weight loss po intake encouraged no obvious malignancy on imaging, but will need follow up chest imaging after treatment and age appropriate cancer screening opiate dependence methadone dvt prophylaxis - lovenox full code reason for continued hospitalization: treating pneumonia in high risk frail patient with significant weight loss, awaiting work up Quality Stroke Does the patient have a stroke diagnosis?: No VTE Prior VTE?: No VTE Risk Level:: Medical - moderate - high VTE Device Contraindication: Treatment Not Indicated VTE Drug Contraindication: N/A - Med Ordered
--- NOTE | 2025-02-14 15:18 | MHC.CM.PN ---
pwe rounds pt will be dcd in 1 to 2 days dc plan home with resumption of methadone
[2025-02-14 15:37] VITALS: BP 93/54; PULSE 68; RESP 16; TEMP 36.9; O2SAT 94
[2025-02-14 17:06] VITALS: BP 90/60
--- NOTE | 2025-02-14 17:07 | PC.NURSE ---
Patient had low blood pressure, manual reassessed. Patient asymptomatic. Patient was woken up to perform manual blood pressure, patient then began complaining about how everyone keeps waking me up , my blood pressure is low because it takes awhile for me to wake up . Patient denied dizziness, light headedness. Patient then stated I feel so good I am ready to run out of here . Provider Herb notified of blood pressure via tigerconnect, no new orders at this time. Patient educated to utilize call denise pt verbalized understanding.
[2025-02-14 18:32] VITALS: BP 110/53
--- NOTE | 2025-02-14 18:46 | MHC.CLN ---
F/U PT IS MODERATELY MALNOURISHED WITH BMI=14.7. PO INTAKE 100% DIET RX: REGULAR ENSURE TID TO PROMOTE NUTRITIONAL INTAKE SUPPLEMENT PROVIDES 1050 KCALS, 60 G PROTEIN MONITOR PO INTAKE AND ENCOURAGE SUPPLEMENTS
[2025-02-14 20:00] VITALS: BP 133/85; PULSE 78; RESP 18; TEMP 37.1
[2025-02-14 20:49] LABS: Mycoplasma Pneumoniae - IgG 1.85 (<=0.90); Mycoplasma Pneumoniae - IgM 291 U/mL (<770)
--- NOTE | 2025-02-14 22:49 | P.PNID_ITS ---
Subjective Subjective Date of Service: 02/14/25 Critical Care Time (minutes): 15 Comment: He feels well and is on room air Objective Data Labs 02/11/25 05:27 02/14/25 08:08 Labs: Laboratory Results - last 24 hr 02/10/25 02/11/25 02/12/25 15:53 18:56 16:48 Creatinine Estim Creat Clear Calc Estimated GFR HIV 1&2 Ab/P24 Ag 4thGn Nonreactive Mycoplasma pneumon IgG 1.85 H Mycoplasma pneumon IgM 291 Ur Strep pneumoniae Ag Detected A 02/14/25 08:08 Creatinine 0.50 Estim Creat Clear Calc 112.3 Estimated GFR > 60 HIV 1&2 Ab/P24 Ag 4thGn Mycoplasma pneumon IgG Mycoplasma pneumon IgM Ur Strep pneumoniae Ag Microbiology Microbiology Results: Microbiology 02/12/25 09:49 Sputum - Expectorated Gram Stain - Final 02/12/25 09:49 Sputum - Expectorated Sputum Culture - Final 02/10/25 11:48 Blood - Venous Blood Culture - Preliminary No growth after 48 hours. 02/10/25 11:29 Blood - Venous Blood Culture - Preliminary No growth after 48 hours. Physical Exam 2 Vital Signs: Vital Signs: Last Vital Signs Temp 98.7 F 02/14/25 20:00 Pulse 78 02/14/25 20:00 Resp 18 02/14/25 20:00 BP 133/85 02/14/25 20:00 Pulse Ox 94 02/14/25 15:37 O2 Del Method Room Air 02/14/25 20:00 BMI result Body Mass Index 14.7 Const: General: cooperative HEENT: Head: Yes normal to inspection Face and sinus: Yes normal facial exam Mouth: Normal oral and palatal mucosa present Teeth and gingiva: d entition normal Eyes: General: appearance normal, both eyes and all related structures P upils: Equal, round and reactive pupils present Resp: Effort & Inspection: normal respiratory effort Cardio: Rate: regular rate Rhythm: regular rhythm GI: Palpation (GI): Soft to palpation and nontender : General: Yes no CVA tenderness Back/Spine/Pelvis: Back: no CVA tenderness Skin: General skin exam: no rashes or lesions noted Neuro: General: moves all extremities Cranial nerves: Yes Equal, round and reactive pupils present Extrem: General: Yes normal to inspection Psych: Appearance: grossly normal Assessment and Plan Assessment and plan Plan Pneumonia stable and on room air TB risk less than 5% Po Doxycycline total 10 d Can check results of tuberculosis assays outpatient Time Spent With Patient Time: Total time managing care of this patient today ____ minutes.
[2025-02-15 00:09] LABS: Strep Pneumo Ag urine Detected (Not Detected)
[2025-02-15 04:00] VITALS: BP 119/70; PULSE 69; RESP 18; TEMP 36.4; O2SAT 98
[2025-02-15 06:16] LABS: Creatinine Clr Calc Pharmacy 108.0; Estimated Glomerular Filt Rate > 60
[2025-02-15 08:00] VITALS: PULSE 69; RESP 16; TEMP 36.2; O2SAT 95
[2025-02-15] MEDS: methADONE HCl 20 MG/2 ML ORAL.CONC 105 MG PO (08:40)
[2025-02-15] MEDS: 0.9 % Sodium Chloride Flush 3 ML SYRINGE IVFLUSH (08:41)
[2025-02-15 09:07] VITALS: BP 92/58
--- NOTE | 2025-02-15 12:06 | P.DS_ITS ---
DS: Providers Provider Date of admission: 02/10/25 14:25 Date of discharge: 02/15/25 Primary care physician: [facility] Consults: 02/11/25 15:35 Consult to Pulmonology Routine Consulting Provider: [facility] Pul[facility] Reason for consultation: multifocal pna with weight loss 02/12/25 08:41 Consult to Infectious Diseases Routine Consulting Provider: [facility] Reason for consultation: pneumonia Has provider been notified: No Attending physician on discharge: Lisbeth Estevez Discharging clinician: Lisbeth Estevez DS: Diagnosis Discharge Diagnosis (1) Pneumonia: Status: Acute DS: Summary Hospital Course Hospital Course: HPI:54M PMH opiate dependence on methadone, denies ivda, presented with 1 week of feeling sick . Patient is a vague historian, states on week prior to presentation he started to have fever, fatigue, loss of appetite, shortness breath, yellowish sputum. Reports 30 lb weight loss over that week, but did not measure. denies sick contacts, chest pain, n/v/d, abdominal pain. in ED, CT chest with bilateral opacities most consistent with multifocal pneumonia though malignancy not ruled out, report of air under left diaphragm. Hospital course:54 y/o M PMH opiate dependence on methadone, denies ivda, presented with 1 week of feeling sick :Multifocal pneumonia: Started on IV antibiotics, respiratory viral panel, strep and Legionella antigen, HIV,blood crytococcal antigen and galactomannan,Fungitel, T-spot, sputum afbx3 sent. Urine drug screen positive for cocaine and marijuana. Patient HIV and treponema pallidum test nonreactive, blood culture negative, echo was done: EF 55-60%, Essentially normal study without any obvious evidence of vegetations . Urine strep pneumo antigen positive. Respiratory pathogen panel also negative. Hepatitis B and C screen nonreactive. Discussed with the Pulmonary and ID: Patient will go home with p.o. doxycycline and Augmentin for 2 weeks. Please repeat chest imaging in 3-4 weeks to see resolution of findings of pneumonia. Further management and further testing outpatient with a pulmonary. Multiple testing including saccharo. Viridans antibody, aspergillosis(eia), micro Polyspora faeni ab, blood crytococcal antigen and galactomannan,Fungitel, T-spot, sputum afbx3 sent/pending. Which needs to be followed up out patiently with a pulmonary. In addition discussed with Pulmonary and ID patient is low probability for Tb , testing is pending but patient wants to go home-so recommendation to go home with 2 weeks of antibiotics as above,wear mask and follow up outpatient. moderate protein calorie malnutrition with significant weight loss:po intake encouraged no obvious malignancy on imaging, but will need follow up chest imaging after treatment and age appropriate cancer screening Currently patient is eating better, no abdominal complaints. Patient is to follow up with PCP and pulm outpatient. If any new symptoms- please go to nearest ed for further evaluation and management . Above management discussed with the patient in detail length including outpatient follow-up with PCP and Pulmonary. Total assessment and plan coordination time spent 45 minute. Time Attestation Total time managing care of this patient today: 45 mintues. Discharge Coordination Time (in mins): 45 minute Quality: Safe Use of Opioids Does Pt have an Active Cancer Diagnosis on the Problem List?: No Quality: Stroke Does the patient have a stroke diagnosis?: No Physical Exam Exam: Exam: Appearance: Alert.? Oriented X3.? cvs: rrr, [id number] . res: air entry diminshed abd: no rebound or guarding ,nt, bs present. ext pulses present , no cyanosis . neuro: axo3 , nonfocal. Vital Signs: Vital Signs: Last Vital Signs Temp 97.2 F 02/15/25 08:00 Pulse 69 02/15/25 08:00 Resp 16 02/15/25 08:00 BP 92/58 L 02/15/25 09:07 Pulse Ox 95 02/15/25 08:00 O2 Del Method Room Air 02/15/25 08:00 BMI result Body Mass Index 14.7 DS: Data Data Completed and Pending Labs on day of discharge: Laboratory Results - last 24 hr 02/11/25 02/11/25 02/15/25 18:56 20:26 05:42 Creatinine 0.52 Estim Creat Clear Calc 108.0 Estimated GFR > 60 Mycoplasma pneumon IgG 1.85 H Mycoplasma pneumon IgM 291 Ur Strep pneumoniae Ag Detected A Preliminary micro results at discharge 02/10/25 11:48 Blood Culture - Preliminary Blood - Venous No growth after 48 hours. 02/10/25 11:29 Blood Culture - Preliminary Blood - Venous No growth after [address] scan - abdomen: Radiologist's impression: ITS Impressions Chest X-Ray 02/10/25 10:57 IMPRESSION: COPD. Multifocal airspace opacities throughout the lungs, likely representing pneumonia. Follow-up is recommended. If there are outside prior examinations, comparison is recommended. Chest CTA 02/10/25 11:35 IMPRESSION: No evidence of pulmonary embolus. Multifocal ground glass and airspace opacity is suspicious for pneumonia. There are innumerable small nodular densities in the lung bases that could also be related, though underlying malignancy is not ruled out, follow-up CT should be performed after complete resolution of patient's symptoms. There is trace gas visible along the deep surface of the left hepatic lobe. The precise location and origin of the gas is uncertain given the limited evaluation of the abdomen. The patient also has scant intraperitoneal fat which increases the difficulty of characterization of the abdomen. If there is evidence of abdominal or pelvic pathology, consider CT abdomen and pelvis with IV and oral contrast. Fleischner guidelines were followed. Abdomen/Pelvis CT 02/10/25 15:07 IMPRESSION: Markedly limited examination due to lack of intravenous and oral contrast material and a paucity of abdominal fat. There is no free intraperitoneal gas. Chest X-Ray 02/12/25 09:17 IMPRESSION: COPD. Multifocal airspace opacities throughout the lungs without change, consistent with pneumonia. Discharge Plan Discharge Anticipated Discharge Date/Time: 02/13/25 12:38 Patient Disposition: Home, Self-Care Discharge Diagnosis: pneumonia Referrals: [facility] [Primary Care Provider, Medical] - 1 Week Emanuel Keenan MD [Physician, Pulmonology] - 1 Week Discharge Medications: New doxycycline monohydrate 100 mg Capsule 100 mg PO Q12H Qty: 26 0RF amoxicillin-pot clavulanate 875-125 mg Tablet 1 tab PO Q12H Qty: 27 0RF Continued methadone 10 mg/mL Concentrate 105 mg PO DAILY Discharge Orders: Discharge Order (Routine); Ordered 02/15/25 Ordered By: Lisbeth Estevez Diet: Advance to usual diet Activity on Discharge: As tolerated Stand Alone Forms: Patient Portal Discharge page Print Language: Pashto Care Plan Goals: 54M PMH opiate dependence on methadone, denies ivda, presented with 1 week of feeling sick :Multifocal pneumonia: Started on IV antibiotics, respiratory viral panel, strep and Legionella antigen, HIV,blood crytococcal antigen and galactomannan,Fungitel, T-spot, sputum afbx3 sent. Multiple testing including saccharo. Viridans antibody, aspergillosis(eia), micro Polyspora faeni ab, multiple other tests ordered by Pulmonary pending. Which needs to be followed up out patiently with a pulmonary. Discussed with the Pulmonary and ID: Patient will go home with p.o. doxycycline and Augmentin for 2 weeks. Please repeat chest imaging in 3-4 weeks to see resolution of findings of pneumonia. Further management and further testing outpatient with a pulmonary. In addition discussed with Pulmonary and ID patient is low probability for Tb , testing is pending but patient wants to go home-so recommendation to go home with 2 weeks of antibiotics as above,wear mask and follow up outpatient. moderate protein calorie malnutrition with significant weight loss:po intake encouraged no obvious malignancy on imaging, but will need follow up chest imaging after treatment and age appropriate cancer screening Patient is to follow up with PCP and pulm outpatient. If any new symptoms- please go to nearest ed for further evaluation and management . Health Concerns: as above. Plan of Treatment: as above. Assessment: as above. Patient Instructions: Pneumonia (DC) Discharge Date/Time: 02/15/25 16:15
--- NOTE | 2025-02-15 12:09 | MHC.CM.PN ---
PT CLEARED TO DC HOME TODAY WITH NO SERVICES VIA SELF TRANSPORT
[2025-02-16 12:48] LABS: MTB M. tuberculosis Complex NOT DETECTED (NOT DETECTED)
[2025-02-16 19:05] LABS: TS Negative Control Passed; TS Panel A 0; TS Panel B 0; TS Positive Control Passed; TSpotTB Negative (Negative)
[2025-02-16 21:09] LABS: Anti Nuclear Antibody Screen NEGATIVE (NEGATIVE)
[2025-02-17 15:55] LABS: Asperg fumigatus Precip Abs NEGATIVE (NEGATIVE); Micropoly faeni Abs NEGATIVE (NEGATIVE); Saccharo pora viridis Abs NEGATIVE (NEGATIVE); Thermo candidus Abs NEGATIVE (NEGATIVE)
[2025-02-18 12:39] LABS: Fungitell 1,3 beta glucan Negative
[2025-02-19 17:53] LABS: Index Value 0.09 (<0.50)
== END 2025-02-15 16:15 | disposition home or self-care (01) | DRG 137 ==
LOC: HO.ED 14:34 → HO.EDOVER 14:35 → HO.S3 17:01
PROVIDERS: Hospitalist; Physician Assistant; Admitting Provider Internal Medicine; Emergency Provider Emergency Medicine Emergency Medical Services; Visit Provider Internal Medicine
DX: J15.212 Pneumonia due to Methicillin resistant Staphylococcus aureus (principal); E44.0 Moderate protein-calorie malnutrition; F11.20 Opioid dependence, uncomplicated; Z68.1 Body mass index [BMI] 19.9 or less, adult; F19.10 Other psychoactive substance abuse, uncomplicated; Z20.822 Contact with and (suspected) exposure to COVID-19
CPT/HCPCS: 36415; 71045; 71046; 71275; 74176; 80048; 80053; 80307; 82550; 82565; 82784; 83605; 83735; 85007; 85027; 85730; 86021; 86038; 86331; 86403; 86481; 86606; 86609; 86704; 86706; 86738; 86780; 86803; 87040; 87070; 87116; 87205; 87206; 87305; 87340; 87389; 87449; 87564; 87633; 87637; 87640; 87641; 87651; 87899; 93306; 99285; J0456; J0696; J0736; J1885; J3374; Q9957; Q9967

== ENCOUNTER → 2025-02-10 10:29 | Outpatient (BNV) | payer MEDICAID, SELFPAY | PROVIDERS: Emergency Provider Emergency Medicine Emergency Medical Services; Visit Provider Radiology Diagnostic Radiology | DX: R10.9 Unspecified abdominal pain (principal); J44.9 Chronic obstructive pulmonary disease, unspecified; R91.8 Other nonspecific abnormal finding of lung field | CPT/HCPCS: 71046; 71275; 74176 ==

== ENCOUNTER 2025-02-10 14:25 | Outpatient (BNV) | payer MEDICAID, SELFPAY | END 2025-02-14 07:00 | PROVIDERS: Admitting Provider Internal Medicine; Emergency Provider Emergency Medicine Emergency Medical Services; Visit Provider Internal Medicine Cardiovascular Disease | DX: Z13.6 Encounter for screening for cardiovascular disorders (principal) | CPT/HCPCS: 93306 ==

== ENCOUNTER 2025-02-10 14:25 | Outpatient (BNV) | payer MEDICAID, SELFPAY | END 2025-02-12 08:49 | PROVIDERS: Admitting Provider Internal Medicine; Emergency Provider Emergency Medicine Emergency Medical Services; Visit Provider Radiology Diagnostic Radiology | DX: J44.9 Chronic obstructive pulmonary disease, unspecified (principal); R91.8 Other nonspecific abnormal finding of lung field | CPT/HCPCS: 71045 ==

== ENCOUNTER → 2025-02-10 14:25 | Outpatient (BNV) | payer MEDICAID, SELFPAY | PROVIDERS: Admitting Provider Internal Medicine; Emergency Provider Emergency Medicine Emergency Medical Services; Visit Provider Internal Medicine | DX: F11.20 Opioid dependence, uncomplicated (principal); F19.10 Other psychoactive substance abuse, uncomplicated; R63.4 Abnormal weight loss; J18.9 Pneumonia, unspecified organism | CPT/HCPCS: 99222 ==

== ENCOUNTER → 2025-02-10 14:25 | Outpatient (BNV) | payer MEDICAID, SELFPAY | PROVIDERS: Admitting Provider Internal Medicine; Emergency Provider Emergency Medicine Emergency Medical Services; Visit Provider Internal Medicine | DX: J18.9 Pneumonia, unspecified organism (principal) | CPT/HCPCS: 99223; 99232; 99233 ==

== ENCOUNTER → 2025-02-10 14:25 | Outpatient (BNV) | payer MEDICAID, SELFPAY | PROVIDERS: Admitting Provider Internal Medicine; Emergency Provider Emergency Medicine Emergency Medical Services; Visit Provider Hospitalist | DX: J18.9 Pneumonia, unspecified organism (principal); R64 Cachexia; F19.10 Other psychoactive substance abuse, uncomplicated; R63.4 Abnormal weight loss | CPT/HCPCS: 99223; 99233 ==